=== PATIENT | female | born 1985 | race American Indian/Alaskan Native ===

== ENCOUNTER 2016-06-10 12:53 | Emergency (ER) | payer MEDICAID ==
[2016-06-10 13:28] LABS: Basophils % (Auto) 0.6 % (0.0-1.8); Eosinophils % (Auto) 0.1 % (0.0-4.3); Hematocrit 36.7 % (30.3-42.9); Hemoglobin 11.5 gm/dl (10.1-14.3); Mean Corpuscular HGB Conc 31 % (30-34); Mean Corpuscular Volume 71 fl (79-97); Platelet Count 300 K/mm3 (140-440); Red Blood Count 5.14 M/mm3 (3.65-5.03); Red Cell Distribution Width 17.4 % (13.2-15.2); White Blood Count 10.2 K/mm3 (4.5-11.0)
[2016-06-10 13:30] LABS: Mean Corpuscular Hemoglobin 22 pg (28-32)
[2016-06-10 13:51] LABS: Alanine Aminotransferase 9 units/L (7-56); Albumin 3.6 g/dL (3.9-5); Albumin/Globulin Ratio 0.7 %; Alkaline Phosphatase 82 units/L (35-129); Anion Gap 22 mmol/L; Bilirubin,Total 0.3 mg/dL (0.1-1.2); Blood Urea Nitrogen 12 mg/dL (7-17); Calcium 8.7 mg/dL (8.4-10.2); Carbon Dioxide 20 mmol/L (22-30); Chloride 93.3 mmol/L (98-107); Glucose 88 mg/dL (65-100); Lipase 38 units/L (13-60); Sodium 131 mmol/L (137-145); Total Protein 8.8 g/dL (6.3-8.2)
[2016-06-10] MEDS ORDERED: NACL 0.9% 1000 ML 1,000 ML IV ONE (18:03)
[2016-06-10] MEDS ORDERED: TORADOL IV ONE (18:03)
[2016-06-10] MEDS ORDERED: ZOFRAN IV ONE (18:03)
--- NOTE | 2016-06-10 18:07 | Emergency Department Report ---
ED Abdominal Pain HPI - General Chief Complaint: Abdominal Pain Stated Complaint: ABD PAIN Time Seen by Provider: 06/10/16 18:02 Source: patient Mode of arrival: Ambulatory Limitations: No Limitations - History of Present Illness Initial Comments: Patient is a 30-year-old female with a history of neurofibromatosis. Patient presents with a week history of URI symptoms consisting of cough, nausea, vomiting, and mild diffuse abdominal pain. She reports she has been taking over -the-counter cold medicine with minor relief. Last dose was 2 nights ago. He is reporting a reduced appetite and is having bowel movements last bowel movement was 3 days ago, which is normal for the patient. Otherwise no fevers, chills, headache, shortness of breath, chest pain, trauma, sick contacts, or travel. MD Complaint: abdominal pain -: week(s) (1) Location: diffuse - Related Data Previous Rx's Medication Instructions Recorded Last Taken Type Docusate Sodium [Colace CAP] 100 mg PO BID PRN #20 capsule 11/01/15 Unknown Rx Ibuprofen [Motrin 600 MG tab] 600 mg PO Q8H PRN #30 tablet 11/23/15 Unknown Rx Cefdinir 300 mg PO BID #20 capsule 06/10/16 Unknown Rx Allergies Allergy/AdvReac Type Severity Reaction Status Date / Time No Known Allergies Allergy Verified 11/22/15 18:57 ED Review of Systems ROS: Stated complaint: ABD PAIN Other details as noted in HPI ED Past Medical Hx - Past Medical History Additional medical history: NEUROFIBROMATOSIS - Surgical History Additional Surgical History: TUMORS REMOVED FROM BACK AND LEFT FOOT - Social History Smoking Status: Current Every Day Smoker Substance Use Type: None - Medications Home Medications: Home Medications Medication Instructions Recorded Confirmed Last Taken Type Docusate Sodium [Colace CAP] 100 mg PO BID PRN #20 capsule 11/01/15 Unknown Rx Ibuprofen [Motrin 600 MG tab] 600 mg PO Q8H PRN #30 tablet 11/23/15 Unknown Rx Cefdinir 300 mg PO BID #20 capsule 06/10/16 Unknown Rx ED Physical Exam - General Limitations: No Limitations General appearance: alert, in no apparent distress - Head Head exam: Present: atraumatic, normocephalic - Eye Eye exam: Present: normal appearance - ENT ENT exam: Present: mucous membranes moist - Neck Neck exam: Present: normal inspection - Respiratory Respiratory exam: Present: normal lung sounds bilaterally. Absent: respiratory distress - Cardiovascular Cardiovascular Exam: Present: regular rate, normal rhythm. Absent: systolic murmur, diastolic murmur, rubs, gallop - GI/Abdominal GI/Abdominal exam: Present: soft, normal bowel sounds. Absent: distended, tenderness, guarding - Extremities Exam Extremities exam: Present: normal inspection - Back Exam Back exam: Present: normal inspection - Neurological Exam Neurological exam: Present: alert, oriented X3 - Skin Skin exam: Present: warm, dry, other (neurofibromas) ED Course Vital Signs 06/10/16 06/10/16 06/10/16 13:06 17:43 17:44 Temperature 98.2 F Pulse Rate 85 93 H 84 Respiratory 18 18 15 Rate Blood Pressure 114/65 O2 Sat by Pulse 100 Oximetry 06/10/16 06/10/16 06/10/16 17:46 17:48 17:50 Temperature Pulse Rate 88 88 87 Respiratory 19 13 11 L Rate Blood Pressure 119/54 119/54 O2 Sat by Pulse 100 100 100 Oximetry 06/10/16 06/10/16 06/10/16 17:52 17:54 17:56 Temperature Pulse Rate 80 85 88 Respiratory 11 L 15 13 Rate Blood Pressure 119/54 119/54 119/54 O2 Sat by Pulse 100 100 100 Oximetry 06/10/16 06/10/16 06/10/16 17:58 18:00 18:02 Temperature Pulse Rate 84 91 H 83 Respiratory 14 13 10 L Rate Blood Pressure 119/54 131/96 131/96 O2 Sat by Pulse 100 100 100 Oximetry 06/10/16 06/10/16 06/10/16 18:04 18:11 18:30 Temperature 98.1 F Pulse Rate 79 Respiratory 10 L 10 L 10 L Rate Blood Pressure 131/96 O2 Sat by Pulse 100 100 Oximetry 06/10/16 19:00 Temperature Pulse Rate Respiratory 10 L Rate Blood Pressure O2 Sat by Pulse Oximetry ED Medical Decision Making - Lab Data Result diagrams: 06/10/16 13:13 06/10/16 13:13 Critical care attestation.: If time is entered above; I have spent that time in minutes in the direct care of this critically ill patient, excluding procedure time. ED Disposition Clinical Impression: Abdominal pain, UTI (urinary tract infection) Disposition: DISCHARGED TO HOME OR SELFCARE Is pt being admited?: No Does the pt Need Aspirin: No Condition: Stable Instructions: Urinary Tract Infection in Women (ED), Abdominal Pain (ED) Prescriptions: Cefdinir 300 mg PO BID #20 capsule Referrals: PRIMARY CARE, [Primary Care Provider] - 3-5 Days
[2016-06-10 18:16] LABS: Bacteria,Urine 1+ /HPF (Negative); Bilirubin,Urine NEG (Negative); Blood,Urine SM (Negative); Ketones,Urine 80 mg/dL (Negative); Leukocyte Esterase,Urine TR (Negative); Mucus,Urine 3+ /HPF; Nitrite,Urine NEG (Negative)
[2016-06-10] MEDS ORDERED: MORPHINE IV ONE (19:02)
[2016-06-10 20:58] VITALS: BP 99/56
== END 2016-06-10 21:03 | disposition home or self-care (01) ==
LOC: ED 12:53
DX: N39.0 Urinary tract infection, site not specified (principal); R10.9 Unspecified abdominal pain; F17.200 Nicotine dependence, unspecified, uncomplicated
CPT/HCPCS: 36415; 80053; 81001; 81025; 83690; 85025; 96361; 96374; 96375; 99283; J1885; J2270; J2405; J7030

== ENCOUNTER 2016-10-16 09:03 | Emergency (ER) | payer MEDICAID ==
[2016-10-16 09:38] LABS: Hemoglobin 9.9 gm/dl (10.1-14.3); Mean Corpuscular HGB Conc 32 % (30-34); Platelet Count 436 K/mm3 (140-440); Red Blood Count 4.64 M/mm3 (3.65-5.03); Red Cell Distribution Width 17.6 % (13.2-15.2); White Blood Count 10.6 K/mm3 (4.5-11.0)
[2016-10-16 09:39] LABS: Mean Corpuscular Hemoglobin 21 pg (28-32); Mean Corpuscular Volume 67 fl (79-97)
[2016-10-16 10:00] LABS: Alanine Aminotransferase 11 units/L (7-56); Albumin 3.9 g/dL (3.9-5); Albumin/Globulin Ratio 0.9 %; Alkaline Phosphatase 72 units/L (35-129); Anion Gap 22 mmol/L; Blood Urea Nitrogen 9 mg/dL (7-17); Carbon Dioxide 21 mmol/L (22-30); Chloride 98.5 mmol/L (98-107); Glucose 87 mg/dL (65-100); Lipase 21 units/L (13-60); Potassium 3.9 mmol/L (3.6-5.0); Sodium 138 mmol/L (137-145); Total Protein 8.4 g/dL (6.3-8.2)
[2016-10-16 10:25] LABS: Basophils % (Manual) 0 % (0.0-1.8); Blastocytes % (Manual) 0 %; Eosinophils % (Manual) 0 % (0.0-4.3); Hypochromasia 2+; Microcytosis 2+; Poikilocytosis 1+
[2016-10-16 10:26] LABS: Diff Status Complete
[2016-10-16 11:16] LABS: Bilirubin,Urine NEG (Negative); Blood,Urine MOD (Negative); Ketones,Urine TR mg/dL (Negative); Leukocyte Esterase,Urine LG (Negative); Mucus,Urine 3+ /HPF; Nitrite,Urine POS (Negative); Urobilinogen,Urine < 2.0 mg/dL (<2.0)
[2016-10-16] MEDS ORDERED: ZOFRAN IV ONE (18:55)
[2016-10-16] MEDS ORDERED: NACL 0.9% 1000 ML 1,000 ML IV ONE (18:55)
[2016-10-16] MEDS ORDERED: ROCEPHIN/NS 1 GM/50 ML 1 GM/50 ML BAG IV ONE (18:55)
[2016-10-16] MEDS ORDERED: TORADOL IV ONE (18:55)
[2016-10-16] MEDS ORDERED: TYLENOL PO ONE (18:56)
[2016-10-16] MEDS ORDERED: MORPHINE IV ONE (18:56)
--- NOTE | 2016-10-16 18:57 | Emergency Department Report ---
ED General Adult HPI - General Chief complaint: Abdominal Pain Stated complaint: HEADACHE/STOMACH PAIN/ Time Seen by Provider: 10/16/16 18:37 Source: patient, RN notes reviewed, old records reviewed Mode of arrival: Ambulatory Limitations: No Limitations - History of Present Illness Initial comments: This is a 30-year-old female. I have evaluated her in the past. Past medical history includes neurofibromatosis, CT scan confirmed pyelonephritis, which was pansensitive. The patient presents to the ER today with complaint of flank pain , and epigastric abdominal pain. She also describes feelings of hot and cold, has nausea with no emesis, and suprapubic pain. To me she denies headache. The symptoms have been going on for the past 4 days. She reports there is similar to prior episodes of pyelonephritis. No recent antibiotic use. -: Gradual Location: back, abdomen Consistency: intermittent Improves with: rest Worsens with: movement Associated Symptoms: diaphoresis, fever/chills, loss of appetite, malaise, nausea/vomiting, weakness. denies: confusion, chest pain - Related Data Previous Rx's Medication Instructions Recorded Last Taken Type Docusate Sodium [Colace CAP] 100 mg PO BID PRN #20 capsule 11/01/15 Unknown Rx Ibuprofen [Motrin 600 MG tab] 600 mg PO Q8H PRN #30 tablet 11/23/15 Unknown Rx Cefdinir 300 mg PO BID #20 capsule 06/10/16 Unknown Rx Ibuprofen [Motrin] 600 mg PO Q8H PRN #30 tablet 10/16/16 Unknown Rx Levofloxacin [Levaquin] 750 mg PO QDAY #10 tablet 10/16/16 Unknown Rx Metoclopramide [Reglan] 10 mg PO QID PRN #30 tablet 10/16/16 Unknown Rx oxyCODONE [Roxicodone] 5 mg PO Q6HR PRN #15 tablet 10/16/16 Unknown Rx Allergies Allergy/AdvReac Type Severity Reaction Status Date / Time No Known Allergies Allergy Verified 11/22/15 18:57 ED Review of Systems ROS: Stated complaint: HEADACHE/STOMACH PAIN/ Other details as noted in HPI Constitutional: malaise Eyes: denies: vision change ENT: denies: epistaxis Respiratory: denies: cough Cardiovascular: denies: chest pain Gastrointestinal: abdominal pain Genitourinary: denies: abnormal menses Musculoskeletal: back pain Skin: denies: lesions Neurological: denies: weakness Psychiatric: denies: anxiety ED Past Medical Hx - Past Medical History Previous Medical History?: Yes Additional medical history: NEUROFIBROMATOSIS - Surgical History Past Surgical History?: Yes Additional Surgical History: TUMORS REMOVED FROM BACK AND LEFT FOOT - Social History Smoking Status: Current Every Day Smoker Substance Use Type: None - Medications Home Medications: Home Medications Medication Instructions Recorded Confirmed Last Taken Type Docusate Sodium [Colace CAP] 100 mg PO BID PRN #20 capsule 11/01/15 Unknown Rx Ibuprofen [Motrin 600 MG tab] 600 mg PO Q8H PRN #30 tablet 11/23/15 Unknown Rx Cefdinir 300 mg PO BID #20 capsule 06/10/16 Unknown Rx Ibuprofen [Motrin] 600 mg PO Q8H PRN #30 tablet 10/16/16 Unknown Rx Levofloxacin [Levaquin] 750 mg PO QDAY #10 tablet 10/16/16 Unknown Rx Metoclopramide [Reglan] 10 mg PO QID PRN #30 tablet 10/16/16 Unknown Rx oxyCODONE [Roxicodone] 5 mg PO Q6HR PRN #15 tablet 10/16/16 Unknown Rx ED Physical Exam - General Limitations: No Limitations General appearance: alert, in no apparent distress - Head Head exam: Present: atraumatic, normocephalic - Eye Eye exam: Present: normal appearance, PERRL, EOMI, other (visual acuity intact to finger counting, color perception, reading at a close distance). Absent: nystagmus - ENT ENT exam: Present: normal exam, normal orophraynx, mucous membranes moist, normal external ear exam - Neck Neck exam: Present: normal inspection, full ROM. Absent: tenderness, meningismus - Respiratory Respiratory exam: Present: normal lung sounds bilaterally. Absent: respiratory distress, wheezes, rales, rhonchi, stridor, chest wall tenderness, accessory muscle use, decreased breath sounds, prolonged expiratory - Cardiovascular Cardiovascular Exam: Present: regular rate, normal rhythm, normal heart sounds. Absent: bradycardia, tachycardia, irregular rhythm, systolic murmur, diastolic murmur, rubs, gallop - GI/Abdominal GI/Abdominal exam: Present: soft, tenderness, normal bowel sounds, other (there is epigastric tenderness. There is suprapubic tenderness. There is no right lower quadrant tenderness.). Absent: distended, guarding, rebound, rigid, pulsatile mass - External exam: Present: normal external exam Speculum exam: Present: normal speculum exam Bi-manual exam: Present: normal bi-manual exam, other (escorted by a motor express clerk Moni Oden). Absent: cervical motion tendernes, adnexal tenderness, adnexal mass, uterine enlargement, uterine tenderness - Extremities Exam Extremities exam: Present: normal inspection, full ROM, normal capillary refill. Absent: pedal edema, joint swelling, calf tenderness - Back Exam Back exam: Present: normal inspection, full ROM, CVA tenderness (R), CVA tenderness (L). Absent: tenderness, paraspinal tenderness, vertebral tenderness - Neurological Exam Neurological exam: Present: alert, oriented X3, normal gait, other (Extraocular movements intact. Tongue midline. No facial droop. Facial sensation intact to light touch in the V1, V2, V3 distribution bilaterally. 5 and 5 strength in 4 extremities.. Sensation is intact to light touch in 4 extremities.). Absent : motor sensory deficit - Psychiatric Psychiatric exam: Present: normal affect, normal mood - Skin Skin exam: Present: warm, dry, intact, normal color. Absent: rash ED Course Vital Signs 10/16/16 10/16/16 09:12 19:04 Temperature 100 F H 99.8 F H Pulse Rate 88 82 Respiratory 15 18 Rate Blood Pressure 97/60 Blood Pressure 106/61 [Left] O2 Sat by Pulse 100 100 Oximetry - Reevaluation(s) Reevaluation #1: 10/17/16 02:16 prior to discharge, the patient appeared quite comfortable, was eating and drinking without difficulty, and endorse that her symptoms had markedly improved and resolved. ED Medical Decision Making - Lab Data Result diagrams: 10/16/16 09:21 10/16/16 09:21 Vital Signs 10/16/16 10/16/16 09:12 19:04 Temperature 100 F H 99.8 F H Pulse Rate 88 82 Respiratory 15 18 Rate Blood Pressure 97/60 Blood Pressure 106/61 [Left] O2 Sat by Pulse 100 100 Oximetry Lab Results 10/16/16 10/16/16 10/16/16 Range/Units 09:21 09:21 10:41 WBC 10.6 (4.5-11.0) K/mm3 RBC 4.64 (3.65-5.03) M/mm3 Hgb 9.9 L (10.1-14.3) gm/dl Hct 31.0 (30.3-42.9) % MCV 67 L (79-97) fl MCH 21 L (28-32) pg MCHC 32 (30-34) % RDW 17.6 H (13.2-15.2) % Plt Count 436 (140-440) K/mm3 [place]ahan % (Auto) Special Education Coordinator Add Manual Diff Complete Total Counted 100 Seg Neuts % (Manual) 70.0 (40.0-70.0) % Band Neutrophils % 3.0 % Lymphocytes % (Manual) 11.0 L (13.4-35.0) % Reactive Lymphs % (Man) 0 % Monocytes % (Manual) 16.0 H (0.0-7.3) % Eosinophils % (Manual) 0 (0.0-4.3) % Basophils % (Manual) 0 (0.0-1.8) % Metamyelocytes % 0 % Myelocytes % 0 % Promyelocytes % 0 % Blast Cells % 0 % Nucleated RBC % Not Reportable Seg Neutrophils # Man 7.4 (1.8-7.7) K/mm3 Band Neutrophils # 0.3 K/mm3 Lymphocytes # (Manual) 1.2 (1.2-5.4) K/mm3 Abs React Lymphs (Man) 0.0 K/mm3 Monocytes # (Manual) 1.7 H (0.0-0.8) K/mm3 Eosinophils # (Manual) 0.0 (0.0-0.4) K/mm3 Basophils # (Manual) 0.0 (0.0-0.1) K/mm3 Metamyelocytes # 0.0 K/mm3 Myelocytes # 0.0 K/mm3 Promyelocytes # 0.0 K/mm3 Blast Cells # 0.0 K/mm3 WBC Morphology Not Reportable Hypersegmented Neuts Not Reportable Hyposegmented Neuts Not Reportable Hypogranular Neuts Not Reportable Smudge Cells Not Reportable Toxic Granulation Not Reportable Toxic Vacuolation Not Reportable Dohle Bodies Not Reportable Pelger-Huet Anomaly Not Reportable Kenn Rods Not Reportable Platelet Estimate Not Reportable Clumped Platelets Not Reportable Plt Clumps, EDTA Not Reportable Large Platelets Not Reportable Giant Platelets Not Reportable Platelet Satelliting Not Reportable Plt Morphology Comment Not Reportable RBC Morphology Not Reportable Dimorphic RBCs Not Reportable Polychromasia Not Reportable Hypochromasia 2+ Poikilocytosis 1+ Anisocytosis Not Reportable Microcytosis 2+ Macrocytosis Not Reportable Spherocytes Not Reportable Pappenheimer Bodies Not Reportable Sickle Cells Not Reportable Target Cells Not Reportable Tear Drop Cells Not Reportable Ovalocytes Not Reportable Helmet Cells Not Reportable S[place] Bodies Not Reportable Manly Rings Not Reportable [place] Cells Not Reportable Bite Cells Not Reportable Crenated Cell Not Reportable Elliptocytes Not Reportable Acanthocytes (Spur) Not Reportable Rouleaux Not Reportable Hemoglobin C Crystals Not Reportable Schistocytes Not Reportable Malaria parasites Not Reportable Evan Bodies Not Reportable Hem Pathologist Commnt No Sodium 138 (137-145) mmol/L Potassium 3.9 (3.6-5.0) mmol/L Chloride 98.5 (98-107) mmol/L Carbon Dioxide 21 L (22-30) mmol/L Anion Gap 22 mmol/L BUN 9 (7-17) mg/dL Creatinine 0.6 L (0.7-1.2) mg/dL Estimated GFR > 60 ml/min BUN/Creatinine Ratio 15.00 % Glucose 87 (65-100) mg/dL Calcium 9.0 (8.4-10.2) mg/dL Total Bilirubin 0.60 (0.1-1.2) mg/dL AST 13 (5-40) units/L ALT 11 (7-56) units/L Alkaline Phosphatase 72 (35-129) units/L Total Protein 8.4 H (6.3-8.2) g/dL Albumin 3.9 (3.9-5) g/dL Albumin/Globulin Ratio 0.9 % Lipase 21 (13-60) units/L Urine Color Yellow (Yellow) Urine Turbidity Slightly-cloudy (Clear) Urine pH 5.0 (5.0-7.0) Ur Specific [place] 1.016 (1.003-1.030) Urine Protein 30 mg/dl (Negative) mg/dL Urine Glucose (UA) Neg (Negative) mg/dL Urine Ketones Tr (Negative) mg/dL Urine Blood Mod (Negative) Urine Nitrite Pos (Negative) Urine Bilirubin Neg (Negative) Urine Urobilinogen < 2.0 (<2.0) mg/dL Ur Leukocyte Esterase Lg (Negative) Urine WBC (Auto) 53.0 H (0.0-6.0) /HPF Urine RBC (Auto) 8.0 (0.0-6.0) /HPF U Epithel Cells (Auto) 3.0 (0-13.0) /HPF Ur Transition Epith Cell 1 /HPF Urine Mucus 3+ /HPF - Medical Decision Making Differential diagnosis: Cystitis, pyelonephritis Assessment and plan: 30-year-old female with an identical presentation to when I evaluated her November 2015. She endorses urinary frequency and obstructive urinary symptoms. Urinalysis today demonstrates positive nitrites, large leuks , 53 WBCs, with suprapubic tenderness and bilateral CVA tenderness. There is no gynecologic tenderness, there is no right lower quadrant tenderness. Extensive discussion had with patient. I don't believe she requires CT scanning at this time, as I think her clinical presentation is consistent with pyelonephritis. This was discussed with the patient, who agreed, and through shared decision making, declined a CT scan (concerned with radiation induced malignancy) which I think is reasonable. The patient will be started empirically on appropriate therapy for pyelonephritis, and she is going to follow up in 2-3 days with either myself or her primary care doctor for repeat evaluation. She is afebrile at this time with reassuring vital signs, and is reliable for discharge with his plan of care. A urine culture from November 2015 demonstrated butcher sensitivity. She denies headache to me, she has an appropriate neurologic examination, with a GCS of 15, NIH score of 0, with no neck pain or neck stiffness or nuchal rigidity. Critical care attestation.: If time is entered above; I have spent that time in minutes in the direct care of this critically ill patient, excluding procedure time. ED Disposition Clinical Impression: Pyelonephritis Disposition: - TO HOME OR SELFCARE Is pt being admited?: No Does the pt Need Aspirin: No Condition: Stable Instructions: Acute Pyelonephritis (ED) Additional Instructions: Cultures were sent today, results will be available in the next 3-5 days. Please have a primary care doctor contact the medical records department to obtain culture results. Avoid alcohol consumption when taking the pain medication, nausea medication, antibiotics. Follow up in the next 48-72 hours for repeat evaluation. Follow up with either a primary care doctor, return to the ER for repeat evaluation by myself or another ER provider. Return to the ER right away with new pain, worsened pain, migration of pain, fevers, chills, intractable nausea or vomiting, inability to tolerate liquid feeds, confusion, change in mental status. Prescriptions: Ibuprofen [Motrin] 600 mg PO Q8H PRN #30 tablet PRN Reason: Pain Levofloxacin [Levaquin] 750 mg PO QDAY #10 tablet Metoclopramide [Reglan] 10 mg PO QID PRN #30 tablet PRN Reason: Nausea oxyCODONE [Roxicodone] 5 mg PO Q6HR PRN #15 tablet PRN Reason: Pain Referrals: PRIMARY CAREMD [Primary Care Provider] - 3-5 Days BECKY ALLEN MD [Staff Physician] - 3-5 Days
[2016-10-16 19:13] VITALS: BP 106/61
== END 2016-10-16 20:44 | disposition home or self-care (01) ==
LOC: ED 09:03
DX: N12 Tubulo-interstitial nephritis, not specified as acute or chronic (principal); F17.200 Nicotine dependence, unspecified, uncomplicated
CPT/HCPCS: 36415; 80053; 81001; 83690; 85007; 85025; 87076; 87086; 87186; 87210; 87591; 96365; 96375; 99284; J0696; J1885; J2270; J2405; J7030

== ENCOUNTER 2016-10-18 17:20 | Emergency (ER) | payer MEDICAID ==
[2016-10-18 17:31] VITALS: BP 113/70
--- NOTE | 2016-10-18 17:56 | Emergency Department Report ---
ED Recheck HPI - General Chief Complaint: Recheck/Abnormal Lab/Rx Stated Complaint: CALLED BACK/ABD PAIN Time Seen by Provider: 10/18/16 17:50 Source: patient, RN notes reviewed, old records reviewed Mode of arrival: Ambulatory Limitations: No Limitations - History of Present Illness Initial Comments: This is a 30-year-old female. I recently evaluated her and presumptively treat her for pyelonephritis. I asked her to come back in a few days for recheck. She reports that all of her symptoms are improving. She is able to tolerate liquid feeds. She currently has no headache, neck pain, chest pain, abdominal pain or shortness of breath, and she endorses compliance with her prescribed therapy. Urine culture is pending, however thus far it is demonstrating gram- negative rods. Sensitivities pending. MD Complaint: other Returns Today for: other Symptoms Since Prior Visit: no new symptoms, improved Context: planned re-check Associated Symptoms: none Treatments Prior to Arrival: Given Antibiotics on, Given Pain Meds on, other - Related Data Previous Rx's Medication Instructions Recorded Last Taken Type Docusate Sodium [Colace CAP] 100 mg PO BID PRN #20 capsule 11/01/15 Unknown Rx Ibuprofen [Motrin 600 MG tab] 600 mg PO Q8H PRN #30 tablet 11/23/15 Unknown Rx Cefdinir 300 mg PO BID #20 capsule 06/10/16 Unknown Rx Ibuprofen [Motrin] 600 mg PO Q8H PRN #30 tablet 10/16/16 Unknown Rx Levofloxacin [Levaquin] 750 mg PO QDAY #10 tablet 10/16/16 Unknown Rx Metoclopramide [Reglan] 10 mg PO QID PRN #30 tablet 10/16/16 Unknown Rx oxyCODONE [Roxicodone] 5 mg PO Q6HR PRN #15 tablet 10/16/16 Unknown Rx Allergies Allergy/AdvReac Type Severity Reaction Status Date / Time No Known Allergies Allergy Verified 10/18/16 17:28 ED Review of Systems ROS: Stated complaint: CALLED BACK/ABD PAIN Other details as noted in HPI Constitutional: denies: fever, malaise Eyes: denies: vision change ENT: denies: epistaxis Respiratory: denies: cough Cardiovascular: denies: palpitations Gastrointestinal: denies: abdominal pain Genitourinary: denies: urgency, dysuria Musculoskeletal: denies: back pain Skin: denies: rash, lesions Neurological: denies: headache Psychiatric: denies: anxiety ED Past Medical Hx - Past Medical History Additional medical history: NEUROFIBROMATOSIS - Surgical History Additional Surgical History: TUMORS REMOVED FROM BACK AND LEFT FOOT - Social History Smoking Status: Current Every Day Smoker Substance Use Type: Prescribed - Medications Home Medications: Home Medications Medication Instructions Recorded Confirmed Last Taken Type Docusate Sodium [Colace CAP] 100 mg PO BID PRN #20 capsule 11/01/15 Unknown Rx Ibuprofen [Motrin 600 MG tab] 600 mg PO Q8H PRN #30 tablet 11/23/15 Unknown Rx Cefdinir 300 mg PO BID #20 capsule 06/10/16 Unknown Rx Ibuprofen [Motrin] 600 mg PO Q8H PRN #30 tablet 10/16/16 Unknown Rx Levofloxacin [Levaquin] 750 mg PO QDAY #10 tablet 10/16/16 Unknown Rx Metoclopramide [Reglan] 10 mg PO QID PRN #30 tablet 10/16/16 Unknown Rx oxyCODONE [Roxicodone] 5 mg PO Q6HR PRN #15 tablet 10/16/16 Unknown Rx ED Physical Exam - General Limitations: No Limitations General appearance: alert, in no apparent distress - Head Head exam: Present: atraumatic, normocephalic - Eye Eye exam: Present: normal appearance, EOMI. Absent: nystagmus - ENT ENT exam: Present: normal exam, normal orophraynx, mucous membranes moist, normal external ear exam - Neck Neck exam: Present: normal inspection, full ROM - Respiratory Respiratory exam: Present: normal lung sounds bilaterally. Absent: respiratory distress - Cardiovascular Cardiovascular Exam: Present: regular rate, normal rhythm, normal heart sounds. Absent: bradycardia, tachycardia, irregular rhythm, systolic murmur, diastolic murmur, rubs, gallop - GI/Abdominal GI/Abdominal exam: Present: soft, normal bowel sounds. Absent: distended, tenderness, guarding, rebound, rigid, pulsatile mass - Extremities Exam Extremities exam: Present: normal inspection, normal capillary refill. Absent: calf tenderness - Back Exam Back exam: Present: normal inspection, full ROM. Absent: tenderness, CVA tenderness (R), CVA tenderness (L) - Neurological Exam Neurological exam: Present: alert, oriented X3, normal gait, other (Extraocular movements intact. Tongue midline. No facial droop. Facial sensation intact to light touch in the V1, V2, V3 distribution bilaterally. 5 and 5 strength in 4 extremities.. Sensation is intact to light touch in 4 extremities.). Absent : motor sensory deficit - Psychiatric Psychiatric exam: Present: normal affect, normal mood - Skin Skin exam: Present: warm, dry, intact, normal color. Absent: rash ED Course Vital Signs 10/18/16 17:28 Temperature 98.5 F Pulse Rate 84 Respiratory 15 Rate Blood Pressure 113/70 O2 Sat by Pulse 100 Oximetry ED Recheck MDM - Core Measures Measure Exclusions: not indicated - Medical Decision Making Differential diagnosis: Pyelonephritis, follow-up, clinically improving Assessment and plan: 30-year-old female who is dramatically improving with the presumed diagnosis of pyelonephritis. Cultures are pending, sensitivities not resulted, she appears to be improving, she is suitable to follow up with outpatient primary care. Return precautions are reviewed. Critical care attestation.: If time is entered above; I have spent that time in minutes in the direct care of this critically ill patient, excluding procedure time. ED Disposition Clinical Impression: Follow up Disposition: DC-01 TO HOME OR SELFCARE Is pt being admited?: No Does the pt Need Aspirin: No Condition: Good Instructions: Acute Pyelonephritis (ED) Additional Instructions: Continue current outpatient antibiotics. Continue outpatient pain medication and nausea medication. Follow up with a primary care doctor within 2 weeks. Return to the ER [place] with fevers, chills, chest pain, shortness of breath, intractable nausea or vomiting, confusion, inability to tolerate liquid feeds. Referrals: ORLIN SHANNON MD [Staff Physician] - 3-5 Days
== END 2016-10-18 18:11 | disposition home or self-care (01) ==
LOC: ED 17:20
DX: Z09 Encounter for follow-up examination after completed treatment for conditions other than malignant neoplasm (principal); F17.200 Nicotine dependence, unspecified, uncomplicated
CPT/HCPCS: 99282

== ENCOUNTER 2016-12-01 15:08 | Emergency (ER) | payer MEDICAID ==
[2016-12-01 16:17] LABS: Anion Gap 17 mmol/L; BUN/Creatinine Ratio 16.66; Blood Urea Nitrogen 10 mg/dL (7-17); Calcium 9.3 mg/dL (8.4-10.2); Carbon Dioxide 27 mmol/L (22-30); Chloride 102.5 mmol/L (98-107); Glucose 72 mg/dL (65-100); Sodium 142 mmol/L (137-145)
[2016-12-01 16:28] LABS: Hematocrit 31.5 % (30.3-42.9); Hemoglobin 9.8 gm/dl (10.1-14.3); Mean Corpuscular HGB Conc 31 % (30-34); Mean Corpuscular Hemoglobin 21 pg (28-32); Mean Corpuscular Volume 68 fl (79-97); Platelet Count 364 K/mm3 (140-440); Red Blood Count 4.63 M/mm3 (3.65-5.03); Red Cell Distribution Width 18.8 % (13.2-15.2); White Blood Count 8.8 K/mm3 (4.5-11.0)
[2016-12-01] MEDS ORDERED: XYLOCAINE 2% INFILTRATI ONE (17:21)
[2016-12-01] MEDS ORDERED: NORCO 5/325 PO ONE (17:24)
--- NOTE | 2016-12-01 17:24 | Emergency Department Report ---
HPI - General Chief Complaint: Skin/Abscess/Foreign Body Time Seen by Provider: 12/01/16 17:05 - HPI HPI: This is a 31 year-old female presents to the emergency department, dropped off by a friend, with complaint of an area of swelling to the left upper face lateral to the eye has been going on for the past 4 days. She says that it is tender but there has been no bleeding, weeping or drainage. She has not taken anything for her symptoms prior to presentation. She denies any fever, vision change but says that the swelling in this area as causing a slight headache. She has a past medical history of neurofibromatosis. She does not currently have a primary care physician. No recent travel or sick contacts at home. ED Past Medical Hx - Past Medical History Previous Medical History?: Yes Additional medical history: NEUROFIBROMATOSIS - Surgical History Past Surgical History?: Yes Additional Surgical History: TUMORS REMOVED FROM BACK AND LEFT FOOT - Social History Smoking Status: Current Every Day Smoker Substance Use Type: Alcohol - Medications Home Medications: Home Medications Medication Instructions Recorded Confirmed Last Taken Type Docusate Sodium [Colace CAP] 100 mg PO BID PRN #20 capsule 11/01/15 Unknown Rx Ibuprofen [Motrin 600 MG tab] 600 mg PO Q8H PRN #30 tablet 11/23/15 Unknown Rx Cefdinir 300 mg PO BID #20 capsule 06/10/16 Unknown Rx Ibuprofen [Motrin] 600 mg PO Q8H PRN #30 tablet 10/16/16 Unknown Rx Levofloxacin [Levaquin] 750 mg PO QDAY #10 tablet 10/16/16 Unknown Rx Metoclopramide [Reglan] 10 mg PO QID PRN #30 tablet 10/16/16 Unknown Rx oxyCODONE [Roxicodone] 5 mg PO Q6HR PRN #15 tablet 10/16/16 Unknown Rx HYDROcodone/APAP 5-325 [Cascade 1 each PO Q6HR PRN #8 tablet 12/01/16 Unknown Rx 5/325] Sulfamethoxazole/Trimethoprim 1 each PO BID #14 tablet 12/01/16 Unknown Rx [Bactrim DS TAB] ED Review of Systems ROS: Stated complaint: FACIAL SWELLING Other details as noted in HPI Comment: All other systems reviewed and negative Constitutional: denies: chills, fever Eyes: denies: eye pain, eye discharge, vision change ENT: denies: ear pain, throat pain Respiratory: denies: cough, shortness of breath, wheezing Cardiovascular: denies: chest pain, palpitations Gastrointestinal: denies: abdominal pain, nausea, diarrhea Genitourinary: denies: urgency, dysuria, discharge Musculoskeletal: denies: back pain, joint swelling, arthralgia Skin: lesions. denies: rash Neurological: headache. denies: weakness Physical Exam - Physical Exam Vital Signs: Vital Signs 12/01/16 15:33 Temperature 98.9 F Pulse Rate 68 Respiratory 18 Rate Blood Pressure 101/56 O2 Sat by Pulse 100 Oximetry Physical Exam: GENERAL: The patient is well-developed well-nourished. HENT: Normocephalic. Atraumatic. Patient has moist mucous membranes. EYES: Extraocular motions are intact. Pupils equal reactive to light bilaterally. NECK: Supple. Trachea is midline. CHEST/LUNGS: Clear to auscultation. There is no respiratory distress noted. HEART/CARDIOVASCULAR: Regular. There is no tachycardia. There is no gallop rub or murmur. ABDOMEN: Abdomen is soft, nontender. Patient has normal bowel sounds. There is no abdominal distention. SKIN: There is a lesion to the left upper lateral face that is circular, raised , is about 3 cm in diameter. The border is more indurated while the central area is slightly fluctuant. There is no erythema or significant warmth. NEURO: The patient is awake, alert, and oriented. The patient is cooperative. The patient has no focal neurologic deficits. The patient has normal speech. MUSCULOSKELETAL: There is no tenderness or deformity. There is no limitation range of motion. There is no evidence of acute injury. ED Course Vital Signs 12/01/16 15:33 Temperature 98.9 F Pulse Rate 68 Respiratory 18 Rate Blood Pressure 101/56 O2 Sat by Pulse 100 Oximetry - I & D Left Face Type of Procedure: Simple Site: left lateral face Blade Size: 11 I & D Procedure: betadine prep, sterile drapes applied, sterile dressing applied Progress: About 2 mL of 2% lidocaine without epinephrine were injected into the suspected abscess. A 1 cm incision was made with an 11 blade scalpel. There was a very small amount of purulent discharge and some mild bleeding. Pressure was held and sterile gauze was applied. No obvious complications. The patient tolerated the procedure well. ED Medical Decision Making - Lab Data Result diagrams: 12/01/16 15:48 12/01/16 15:48 - Medical Decision Making Patient presents with 4 day history of some swelling to the left upper lateral face. With history of neurofibromatosis, it is possible that it is a fibroma. However he developed within 4 days, has a central area of fluctuance and appears consistent with an abscess. I spoke to the patient in detail about the procedure to do a incision and drainage and she understands that doing so on the face could leave a small scar, but the patient understands and asked for the procedure to be done. Incision and drainage was done with only a very small amount of purulent return as it mostly appears indurated. However there is now on opening into the wound/lesion and the patient will use warm compresses. She will also be placed on antibiotics. Vital signs stable including being afebrile. She has been encouraged to follow up with a primary care physician and return to the ER with any worsening of her symptoms or any acute distress. We discussed worsening signs or symptoms of infection and reasons to return to the emergency department. - Differential Diagnosis abscess, neurofibroma, cyst Critical Care Time: No Critical care attestation.: If time is entered above; I have spent that time in minutes in the direct care of this critically ill patient, excluding procedure time. ED Disposition Clinical Impression: Swelling of left side of face, Abscess Disposition: - TO HOME OR SELFCARE Is pt being admited?: No Condition: Stable Instructions: Abscess Incision and Drainage (ED), Abscess (ED) Additional Instructions: Please follow up with a primary care doctor in the next 2 days for a wound check. Use a warm, but not hot, compress or washcloth to place against the swollen area and/or abscess and try to express infection. Return to the emergency department immediately with any worsening of the swelling, surrounding redness, development of fever or any acute distress. Take the antibiotics as prescribed. You have been prescribed a medication that is sedating and therefore should not be taken prior to driving, working, and responsible for children and in no way should be mixed with alcohol of any quantity. Prescriptions: HYDROcodone/APAP 5-325 [Cascade 5/325] 1 each PO Q6HR PRN #8 tablet PRN Reason: Pain Sulfamethoxazole/Trimethoprim [Bactrim DS TAB] 1 each PO BID #14 tablet Referrals: PRIMARY CARE, [Primary Care Provider] - 3-5 Days SLADE BUCK JR, MD [Staff Physician] - 3-5 Days ALLIE PAUL MD [Staff Physician] - 3-5 Days [facility] [Outside] - 3-5 Days [facility] [Outside] - 3-5 Days [facility] [Outside] - 3-5 Days Time of Disposition: 18:15
[2016-12-01] MEDS ORDERED: BACTRIM DS PO ONE (17:43)
[2016-12-01 17:56] VITALS: BP 107/60
== END 2016-12-01 19:40 | disposition home or self-care (01) ==
LOC: ED 15:08
DX: L02.01 Cutaneous abscess of face (principal); F17.200 Nicotine dependence, unspecified, uncomplicated
CPT/HCPCS: 36415; 80048; 85025; 99283

== ENCOUNTER 2017-03-16 11:18 | Emergency (ER) | payer MEDICAID ==
--- NOTE | 2017-03-16 21:13 | Emergency Department Report ---
Abscess Boil HPI - HPI Chief Complaint: Skin/Abscess/Foreign Body Stated Complaint: FACIAL SWELLING Time Seen by Provider: 03/16/17 20:29 Duration: 2 Days Location: Other (left facial pain and swelling 2 days) Severity: Severe (pain is 10/10 and sore/aching. Worse to touch and eating) History: Yes Pain (lt facial area and chin and swelling), No Fever, No Purulent Drainage, No Numbness, No Foreign Body, No Previous History, No Insect Bite HPI: Patient here complaining of left sided facial pain and pain at her chin area since 03/14/2017. She had similar incident in the past. Tetanus vaccine is up-to-date. She denies any drooling or trouble swallowing. Denies any sore throat. Denies any toothache. Patient says she had a pimple on her left face and it got bigger now she is having swelling around the area. Pain is 10 out of 10 sore and aching. She says she took [id number] pain medication but it's not working. Patient does have a primary care physician and she does have access to a inorganic chemist but she says she did not go to her doctor. She said last time it happened a told her that she has an infection and treated her with antibiotic. Home Medications: Previous Rx's Medication Instructions Recorded Last Taken Type Docusate Sodium [Colace CAP] 100 mg PO BID PRN #20 capsule 11/01/15 Unknown Rx Ibuprofen [Motrin 600 MG tab] 600 mg PO Q8H PRN #30 tablet 11/23/15 Unknown Rx Cefdinir 300 mg PO BID #20 capsule 06/10/16 Unknown Rx Levofloxacin [Levaquin] 750 mg PO QDAY #10 tablet 10/16/16 Unknown Rx Metoclopramide [Reglan] 10 mg PO QID PRN #30 tablet 10/16/16 Unknown Rx oxyCODONE [Roxicodone] 5 mg PO Q6HR PRN #15 tablet 10/16/16 Unknown Rx HYDROcodone/APAP 5-325 [Dent 1 each PO Q6HR PRN #8 tablet 12/01/16 Unknown Rx 5/325] Sulfamethoxazole/Trimethoprim 1 each PO BID #14 tablet 12/01/16 Unknown Rx [Bactrim DS TAB] Acetaminophen/Codeine [Tylenol 1 tab PO Q6H PRN 3 Days #12 tab 03/16/17 Unknown Rx /Codeine # 3 tab] Clindamycin [Clindamycin CAP] 300 mg PO Q8H 10 Days #30 cap 03/16/17 Unknown Rx Ibuprofen [Motrin 600 MG tab] 600 mg PO Q8H PRN 5 Days #15 tablet 03/16/17 Unknown Rx Allergies/Adverse Reactions: Allergies Allergy/AdvReac Type Severity Reaction Status Date / Time No Known Allergies Allergy Verified 10/18/16 17:28 ED Review of Systems ROS: Stated complaint: FACIAL SWELLING Other details as noted in HPI Comment: All other systems reviewed and negative Constitutional: no symptoms reported Eyes: denies: eye pain, eye discharge ENT: other (Lt facial pain and swelling. Swelling to chin). denies: ear pain, throat pain, dental pain, epistaxis, congestion Respiratory: no symptoms reported Cardiovascular: denies: chest pain, palpitations, dyspnea on exertion, edema, syncope Gastrointestinal: denies: abdominal pain, nausea, vomiting, diarrhea, constipation Musculoskeletal: denies: back pain, joint swelling, arthralgia, myalgia Skin: denies: rash, lesions Neurological: denies: headache, weakness, numbness, paresthesias, confusion, abnormal gait, vertigo ED Past Medical Hx - Past Medical History Previous Medical History?: Yes Additional medical history: NEUROFIBROMATOSIS - Surgical History Past Surgical History?: Yes Additional Surgical History: TUMORS REMOVED FROM BACK AND LEFT FOOT - Family History Family history: hypertension - Social History Smoking Status: Current Every Day Smoker Substance Use Type: None - Medications Home Medications: Home Medications Medication Instructions Recorded Confirmed Last Taken Type Docusate Sodium [Colace CAP] 100 mg PO BID PRN #20 capsule 11/01/15 Unknown Rx Ibuprofen [Motrin 600 MG tab] 600 mg PO Q8H PRN #30 tablet 11/23/15 Unknown Rx Cefdinir 300 mg PO BID #20 capsule 06/10/16 Unknown Rx Levofloxacin [Levaquin] 750 mg PO QDAY #10 tablet 10/16/16 Unknown Rx Metoclopramide [Reglan] 10 mg PO QID PRN #30 tablet 10/16/16 Unknown Rx oxyCODONE [Roxicodone] 5 mg PO Q6HR PRN #15 tablet 10/16/16 Unknown Rx HYDROcodone/APAP 5-325 [Dent 1 each PO Q6HR PRN #8 tablet 12/01/16 Unknown Rx 5/325] Sulfamethoxazole/Trimethoprim 1 each PO BID #14 tablet 12/01/16 Unknown Rx [Bactrim DS TAB] Acetaminophen/Codeine [Tylenol 1 tab PO Q6H PRN 3 Days #12 tab 03/16/17 Unknown Rx /Codeine # 3 tab] Clindamycin [Clindamycin CAP] 300 mg PO Q8H 10 Days #30 cap 03/16/17 Unknown Rx Ibuprofen [Motrin 600 MG tab] 600 mg PO Q8H PRN 5 Days #15 tablet 03/16/17 Unknown Rx ED Abscess Boil Physical Exam - Exam General: Vital signs noted. No distress. Alert and acting appropriately. This is a 31-year-old female well-nourished well-developed in no acute distress. Front/Back of Body, Lg (Color): 1 - Patient with left facial pustule with indurated area without any fluctuance and swelling around indurated area. Tender to palpate. Pustule area erythema with no drainage surrounding soft tissue swelling with tenderness to palpate. No oral mucosal abscess noted. Uvula is midline and no peritonsillar abscess Size: 1 cm Exam: Yes Tenderness (left facial pustule with soft tissue swelling), Yes Surrounding Cellulites/Erythema (erythema cellulitis at pustule.), Yes Lymphangitis (submental), Yes Normal Neurologic Exam, Yes Normal Circulation ( no clubbing, cyanosis or edema. +2 pulses to all extremities. No neurovascular compromise.), No Fluctuance, No Crepitation, No Heart Murmur (S1, S2. Regular rate and rhythm.) Exam: Neck: Supple, full range of motion. No C-spine tenderness. no adenopathy. No stridor. Lymph: positive submental adenipathy. Mouth: Patient with multiple filling, moist, tongue is normal, no dental tenderness, uvula is midline and oral airways patent. No peritonsillar abscess noted. Lungs: Clear to auscultation bilaterally, no rhonchi wheezes or rales. Normal work of breathing I & D Note - I & D Note I & D Note: Patient with pustule to left facial area with surrounding soft tissue swelling. Possibly area indurated fluctuant. Tender to palpate. Unable to drain due to non-fluctuance. Immunization up-to-date ED Course Vital Signs 03/16/17 12:09 Temperature 98.2 F Pulse Rate 85 Respiratory 18 Rate Blood Pressure 106/66 O2 Sat by Pulse 100 Oximetry - Reevaluation(s) Reevaluation #1: 03/16/17 22:58 Patient given Percocet 5/325 2 tablets and clindamycin 600 mg IM in emergency room without any adverse reaction. Critical care attestation.: If time is entered above; I have spent that time in minutes in the direct care of this critically ill patient, excluding procedure time. ED Disposition Clinical Impression: Skin pustule, Localized soft tissue swelling, Lymphadenopathy, submental Disposition: DC-01 TO HOME OR SELFCARE Is pt being admited?: No Does the pt Need Aspirin: No Condition: Stable Instructions: Lymphadenopathy (ED), Cellulitis (ED) Additional Instructions: Please follow up with her primary care physician as instructed. Follow-up with inorganic chemist as instructed Return to emergency room if affected area to left face increased in size, increase in swelling, erythema, and difficulty opening and closing mouth. Take Tylenol 3 and Motrin as instructed for pain. Take clindamycin as instructed for infection. Keep affected area clean and dry Prescriptions: Acetaminophen/Codeine [Tylenol /Codeine # 3 tab] 1 tab PO Q6H PRN 3 Days #12 tab PRN Reason: Pain, Moderate (4-6) Clindamycin [Clindamycin CAP] 300 mg PO Q8H 10 Days #30 cap Ibuprofen [Motrin 600 MG tab] 600 mg PO Q8H PRN 5 Days #15 tablet PRN Reason: Pain Referrals: your, primary care physician [Other] - 2-3 Days ARUN RATLIFF MD [Staff Physician] - 03/18/17 Forms: Work/School Release Form(ED)
[2017-03-16] MEDS ORDERED: PERCOCET 5/325 PO ONE (21:14)
[2017-03-16] MEDS ORDERED: CLEOCIN IM ONE (21:14)
[2017-03-16 23:19] VITALS: BP 112/59
== END 2017-03-16 23:17 | disposition home or self-care (01) ==
LOC: ED 11:18
DX: R59.1 Generalized enlarged lymph nodes (principal); F17.200 Nicotine dependence, unspecified, uncomplicated; L08.9 Local infection of the skin and subcutaneous tissue, unspecified
CPT/HCPCS: 96372; 99282

== ENCOUNTER 2017-07-22 19:10 | Emergency (ER) | payer MEDICAID ==
[2017-07-22 20:49] VITALS: BP 111/67
[2017-07-23 01:06] LABS: Bilirubin,Urine NEG (Negative); Blood,Urine MOD (Negative); Color,Urine Yellow (Yellow); Mucus,Urine FEW /HPF; Protein,Urine <15 mg/dL mg/dL (Negative); Urobilinogen,Urine < 2.0 mg/dL (<2.0)
[2017-07-23] MEDS ORDERED: TYLENOL ONE (01:17)
[2017-07-23] MEDS ORDERED: TYLENOL PO ONE (01:20)
--- NOTE | 2017-07-23 01:57 | Emergency Department Report ---
ED Female HPI - General Chief complaint: Back Pain/Injury Stated complaint: LOSS OF APPETITE/ABD PAIN Time Seen by Provider: 07/23/17 01:52 Source: patient Mode of arrival: Ambulatory Limitations: No Limitations - History of Present Illness Initial comments: 31-year-old Afro-Citizen Of The [place] female comes in complaining of lower back pain headache and increased urination. Patient reports the onset this a.m. Patient reports a past medical history of neurofibromatosis. She denies any dysuria and no fever with chills denies any nausea vomiting or diarrhea denies abdominal pain reports left flank pain. Does admit to urinary urgency but no dysuria. -: This morning Radiation: L flank Severity: severe Severity scale (0 -10): 8 Quality: sharp, stabbing Consistency: constant Worsens with: movement Are you Now?: No Last Menstrual Period: 06/18/17 EDC: 03/25/18 - Related Data Previous Rx's Medication Instructions Recorded Last Taken Type Docusate Sodium [Colace CAP] 100 mg PO BID PRN #20 capsule 11/01/15 Unknown Rx Cefdinir 300 mg PO BID #20 capsule 06/10/16 Unknown Rx Metoclopramide [Reglan] 10 mg PO QID PRN #30 tablet 10/16/16 Unknown Rx HYDROcodone/APAP 5-325 [Niota 1 each PO Q6HR PRN #8 tablet 12/01/16 Unknown Rx 5/325] Acetaminophen/Codeine [Tylenol 1 tab PO Q6H PRN 3 Days #12 tab 03/16/17 Unknown Rx /Codeine # 3 tab] Clindamycin [Clindamycin CAP] 300 mg PO Q8H 10 Days #30 cap 03/16/17 Unknown Rx Ibuprofen [Motrin 600 MG tab] 600 mg PO Q8H PRN #30 tablet 07/23/17 Unknown Rx Nitrofurantoin Monohyd/M-Cryst 100 mg PO BID #20 capsule 07/23/17 Unknown Rx [Macrobid 100 mg Capsule] Allergies Allergy/AdvReac Type Severity Reaction Status Date / Time No Known Allergies Allergy Verified 10/18/16 17:28 ED Review of Systems ROS: Stated complaint: LOSS OF APPETITE/ABD PAIN Other details as noted in HPI Constitutional: chills Eyes: denies: eye pain, eye discharge, vision change ENT: denies: ear pain, throat pain Respiratory: denies: cough, shortness of breath, wheezing Cardiovascular: denies: chest pain, palpitations Endocrine: no symptoms reported Gastrointestinal: denies: abdominal pain, nausea, diarrhea Genitourinary: urgency, frequency. denies: dysuria, hematuria Musculoskeletal: back pain Skin: denies: rash, lesions Neurological: headache, weakness Psychiatric: denies: anxiety, depression Hematological/Lymphatic: as per HPI ED Past Medical Hx - Past Medical History Previous Medical History?: Yes Additional medical history: NEUROFIBROMATOSIS - Surgical History Past Surgical History?: Yes Additional Surgical History: TUMORS REMOVED FROM BACK AND LEFT FOOT, 2005 - Social History Smoking Status: Current Every Day Smoker Substance Use Type: None - Medications Home Medications: Home Medications Medication Instructions Recorded Confirmed Last Taken Type Docusate Sodium [Colace CAP] 100 mg PO BID PRN #20 capsule 11/01/15 Unknown Rx Cefdinir 300 mg PO BID #20 capsule 06/10/16 Unknown Rx Metoclopramide [Reglan] 10 mg PO QID PRN #30 tablet 10/16/16 Unknown Rx HYDROcodone/APAP 5-325 [Niota 1 each PO Q6HR PRN #8 tablet 12/01/16 Unknown Rx 5/325] Acetaminophen/Codeine [Tylenol 1 tab PO Q6H PRN 3 Days #12 tab 03/16/17 Unknown Rx /Codeine # 3 tab] Clindamycin [Clindamycin CAP] 300 mg PO Q8H 10 Days #30 cap 03/16/17 Unknown Rx Ibuprofen [Motrin 600 MG tab] 600 mg PO Q8H PRN #30 tablet 07/23/17 Unknown Rx Nitrofurantoin Monohyd/M-Cryst 100 mg PO BID #20 capsule 07/23/17 Unknown Rx [Macrobid 100 mg Capsule] ED Physical Exam - General Limitations: No Limitations General appearance: alert, in no apparent distress - Head Head exam: Present: atraumatic, normocephalic - Eye Eye exam: Present: normal appearance - Respiratory Respiratory exam: Present: normal lung sounds bilaterally. Absent: respiratory distress - Cardiovascular Cardiovascular Exam: Present: regular rate, normal rhythm. Absent: systolic murmur, diastolic murmur, rubs, gallop - GI/Abdominal GI/Abdominal exam: Present: soft, normal bowel sounds - Back Exam Back exam: Present: CVA tenderness (L) - Neurological Exam Neurological exam: Present: alert, oriented X3 - Psychiatric Psychiatric exam: Present: normal affect, normal mood - Skin Skin exam: Present: warm, dry, intact, normal color. Absent: rash ED Course Vital Signs 07/22/17 20:44 Temperature 99.8 F H Pulse Rate 101 H Respiratory 20 Rate Blood Pressure 111/67 O2 Sat by Pulse 100 Oximetry ED Medical Decision Making - Medical Decision Making Patient's been evaluated for this provider fast track. I discussed the patient that appears that she has a urinary tract infection. Discussed the patient I' ll place her on antibiotics pain medication and have her follow up with her primary care provider. Patient verbalized understanding. Critical care attestation.: If time is entered above; I have spent that time in minutes in the direct care of this critically ill patient, excluding procedure time. ED Disposition Clinical Impression: UTI (urinary tract infection) Qualifiers: Urinary tract infection type: acute cystitis Hematuria presence: with hematuria Qualified Code(s): N30.01 - Acute cystitis with hematuria Disposition: TO HOME OR SELFCARE Is pt being admited?: No Does the pt Need Aspirin: No Condition: Stable Instructions: Urinary Tract Infection in Women (ED) Additional Instructions: Please complete antibiotics as prescribed. Please take pain medication as prescribed with food. Follow-up with her primary care provider in the next 3-5 days. Prescriptions: Ibuprofen [Motrin 600 MG tab] 600 mg PO Q8H PRN #30 tablet PRN Reason: Pain Nitrofurantoin Monohyd/M-Cryst [Macrobid 100 mg Capsule] 100 mg PO BID #20 capsule Referrals: PRIMARY CARE, [Primary Care Provider] - 3-[address] [facility] [Provider Group] - 3-5 Days Forms: Work/School Release Form(ED)
[2017-07-23 02:19] LABS: HCG Qualitative,Urine Negative (Negative)
== END 2017-07-23 02:40 | disposition home or self-care (01) ==
LOC: ED 19:10
DX: N30.01 Acute cystitis with hematuria (principal); F17.200 Nicotine dependence, unspecified, uncomplicated
CPT/HCPCS: 81001; 81025; 99283

== ENCOUNTER 2017-07-24 09:06 | Emergency (ER) | payer MEDICAID ==
--- NOTE | 2017-07-24 10:06 | Emergency Department Report ---
Chief Complaint: Urogenital-Female Stated Complaint: FLU LIKE SYMPTOMS Time Seen by Provider: 07/24/17 09:40 - HPI History of Present Illness: 31-year-old female presents with complaint of some burning with urination and generalized aches and pains. She was diagnosed 2 days ago with a urinary tract infection and placed on Macrobid and Motrin. She says that the medications are not working. She has a history of neurofibromatosis. She has a PCP but has not seen them regarding her symptoms. No vaginal bleeding or discharge. She complains of a headache but no vision change or neurological deficits. - ROS Review of Systems: Positive for dysuria, body aches, headache Negative for fever, nausea, vomiting, vaginal bleeding or discharge - Exam Vital Signs: Vital Signs 07/24/17 09:13 Temperature 98.1 F Pulse Rate 87 Blood Pressure 113/57 O2 Sat by Pulse 100 Oximetry Physical Exam: Patient is sitting there comfortably and does not appear in any acute distress. Normal sounding heart and lungs to auscultation. MSE screening note: Focused history and physical exam performed. Due to findings the following was ordered: I have ordered a CBC, BMP, urinalysis and urine test and the patient will be seen on the Q-track side. ED Disposition for MSE Condition: Stable Referrals: PRIMARY CARE, [Primary Care Provider] - 3-5 Days
--- NOTE | 2017-07-24 10:28 | Emergency Department Report ---
ED Female HPI - General Chief complaint: Urogenital-Female Stated complaint: FLU LIKE SYMPTOMS Time Seen by Provider: 07/24/17 09:40 Source: patient, family Mode of arrival: Ambulatory Limitations: No Limitations - History of Present Illness Initial comments: 31-year-old female presents with complaint of some burning with urination and generalized aches and pains. She was diagnosed 2 days ago with a urinary tract infection and placed on Macrobid and Motrin. She says that the medications are not working. She has a history of neurofibromatosis. She has a PCP but has not seen them regarding her symptoms. No vaginal bleeding or discharge. She complains of a headache but no vision change or neurological deficits. MD Complaint: dysuria, other (nausea vomiting, chills, flank pain I) Onset/Timin -: days(s) Location: suprapubic, other (left flank) Radiation: non-radiating Severity scale (0 -10): 3 Quality: cramping (cramping the pelvic area), burning (burning with urination), aching (he came to left flank) Consistency: constant, intermittent Improves with: urination Worsens with: urination, movement Are you Now?: No Last Menstrual Period: 06/26/17 EDC: 04/02/18 Associated Symptoms: abdominal pain, nausea/vomiting, fever/chills, loss of appetite, dysuria. denies: vaginal discharge, vaginal bleeding, headaches, hematuria, rash, seizure, shortness of breath, syncope, weakness - Related Data Sexually active: No Previous Rx's Medication Instructions Recorded Last Taken Type Docusate Sodium [Colace CAP] 100 mg PO BID PRN #20 capsule 11/01/15 Unknown Rx Cefdinir 300 mg PO BID #20 capsule 06/10/16 Unknown Rx Metoclopramide [Reglan] 10 mg PO QID PRN #30 tablet 10/16/16 Unknown Rx HYDROcodone/APAP 5-325 [Charlo 1 each PO Q6HR PRN #8 tablet 12/01/16 Unknown Rx 5/325] Acetaminophen/Codeine [Tylenol 1 tab PO Q6H PRN 3 Days #12 tab 03/16/17 Unknown Rx /Codeine # 3 tab] Clindamycin [Clindamycin CAP] 300 mg PO Q8H 10 Days #30 cap 03/16/17 Unknown Rx Ibuprofen [Motrin 600 MG tab] 600 mg PO Q8H PRN #30 tablet 07/23/17 Unknown Rx Nitrofurantoin Monohyd/M-Cryst 100 mg PO BID #20 capsule 07/23/17 Unknown Rx [Macrobid 100 mg Capsule] Levofloxacin [Levaquin] 750 mg PO QDAY 6 Days #6 tablet 07/24/17 Unknown Rx Naproxen 500 mg PO Q12H PRN #12 tablet 07/24/17 Unknown Rx Ondansetron [Zofran Odt] 4 mg PO Q6H PRN #12 tab.rapdis 07/24/17 Unknown Rx Allergies Allergy/AdvReac Type Severity Reaction Status Date / Time No Known Allergies Allergy Verified 10/18/16 17:28 ED Review of Systems ROS: Stated complaint: FLU LIKE SYMPTOMS Other details as noted in HPI Constitutional: denies: chills, fever Eyes: denies: eye pain, eye discharge, vision change ENT: denies: ear pain, throat pain Respiratory: denies: cough, shortness of breath, SOB with exertion, SOB at rest , stridor, wheezing Cardiovascular: denies: chest pain, palpitations, edema, syncope Endocrine: no symptoms reported Gastrointestinal: abdominal pain, nausea, vomiting. denies: diarrhea, constipation, hematemesis, melena, hematochezia Genitourinary: dysuria. denies: urgency, frequency, hematuria, discharge Musculoskeletal: back pain (left flank pain). denies: joint swelling, arthralgia Skin: denies: rash, lesions Neurological: denies: headache, weakness, numbness, paresthesias, confusion, abnormal gait, vertigo ED Past Medical Hx - Past Medical History Previous Medical History?: Yes Additional medical history: NEUROFIBROMATOSIS - Surgical History Past Surgical History?: Yes Additional Surgical History: TUMORS REMOVED FROM BACK AND LEFT FOOT, 2004 - Family History Family history: hypertension - Social History Smoking Status: Current Every Day Smoker Substance Use Type: None Other Social History: Single - Medications Home Medications: Home Medications Medication Instructions Recorded Confirmed Last Taken Type Docusate Sodium [Colace CAP] 100 mg PO BID PRN #20 capsule 11/01/15 Unknown Rx Cefdinir 300 mg PO BID #20 capsule 06/10/16 Unknown Rx Metoclopramide [Reglan] 10 mg PO QID PRN #30 tablet 10/16/16 Unknown Rx HYDROcodone/APAP 5-325 [Charlo 1 each PO Q6HR PRN #8 tablet 12/01/16 Unknown Rx 5/325] Acetaminophen/Codeine [Tylenol 1 tab PO Q6H PRN 3 Days #12 tab 03/16/17 Unknown Rx /Codeine # 3 tab] Clindamycin [Clindamycin CAP] 300 mg PO Q8H 10 Days #30 cap 03/16/17 Unknown Rx Ibuprofen [Motrin 600 MG tab] 600 mg PO Q8H PRN #30 tablet 07/23/17 Unknown Rx Nitrofurantoin Monohyd/M-Cryst 100 mg PO BID #20 capsule 07/23/17 Unknown Rx [Macrobid 100 mg Capsule] Levofloxacin [Levaquin] 750 mg PO QDAY 6 Days #6 tablet 07/24/17 Unknown Rx Naproxen 500 mg PO Q12H PRN #12 tablet 07/24/17 Unknown Rx Ondansetron [Zofran Odt] 4 mg PO Q6H PRN #12 tab.rapdis 07/24/17 Unknown Rx ED Physical Exam - General Limitations: No Limitations General appearance: alert, in no apparent distress - Head Head exam: Present: atraumatic, normocephalic, normal inspection - Eye Eye exam: Present: normal appearance, PERRL, EOMI. Absent: conjunctival injection Pupils: Present: normal accommodation - ENT ENT exam: Present: normal exam, normal orophraynx, mucous membranes moist - Neck Neck exam: Present: normal inspection, full ROM. Absent: tenderness, lymphadenopathy - Respiratory Respiratory exam: Present: normal lung sounds bilaterally. Absent: respiratory distress, chest wall tenderness - Cardiovascular Cardiovascular Exam: Present: regular rate, normal rhythm, normal heart sounds - GI/Abdominal GI/Abdominal exam: Present: soft, normal bowel sounds. Absent: distended, tenderness, guarding, rebound, rigid, organomegaly, mass, bruit, pulsatile mass , hernia - Extremities Exam Extremities exam: Present: normal inspection, full ROM, normal capillary refill. Absent: tenderness, pedal edema, joint swelling, calf tenderness - Back Exam Back exam: Present: normal inspection, full ROM, CVA tenderness (L), other ( ambulates without any difficulties). Absent: tenderness, CVA tenderness (R), muscle spasm, paraspinal tenderness, vertebral tenderness, rash noted - Neurological Exam Neurological exam: Present: alert, oriented X3, normal gait - Psychiatric Psychiatric exam: Present: normal affect, normal mood - Skin Skin exam: Present: warm, dry, intact, normal color. Absent: rash ED Course Vital Signs 07/24/17 07/24/17 07/24/17 09:13 13:07 13:37 Temperature 98.1 F Pulse Rate 87 Respiratory 18 18 Rate Blood Pressure 113/57 Blood Pressure [Left] O2 Sat by Pulse 100 Oximetry 07/24/17 07/24/17 15:14 16:06 Temperature 100.3 F H Pulse Rate 100 H Respiratory 18 20 Rate Blood Pressure Blood Pressure 102/60 [Left] O2 Sat by Pulse 100 Oximetry - Reevaluation(s) Reevaluation #1: 07/24/17 12:43 Patient left CVA tenderness, white blood cell elevated with bacterial shift to the left, urinalysis with increase in white blood cell, patient with nausea and vomiting and, fever and chills and body ache. Patient to receive IV fluid normal saline x1 litre, morphine 4 mg IV, Zofran 4 mg IV, Reglan 10 mg IV. Levaquin 750 mg by mouth and awaits CT scan of the abdomen and pelvis with iv contrast to check for stones. Reevaluation #2: 07/24/17 14:10 Pt stable no abdominal pain at present. Abd NTTP. Denies nausea Reevaluation #3: 07/24/17 15:05 Patient's stable and she is requesting in pain medication for pain at 4 out of 10. She'll be given Toradol 30 mg IV and I discussed results of CT scan with her and she voiced understanding. Abdomen is nontender to palpate. Nausea has resolved Reevaluation #4: 07/24/17 16:24 Patient stable, pain-free, feeling better and tolerating fluids. Denies any nausea. ED Medical Decision Making - Lab Data Result diagrams: 07/24/17 10:24 07/24/17 10:24 Lab Results 07/24/17 07/24/17 07/24/17 Range/Units 10:15 10:24 10:24 WBC 18.3 H (4.5-11.0) K/mm3 RBC 4.91 (3.65-5.03) M/mm3 Hgb 10.7 (10.1-14.3) gm/dl Hct 33.5 (30.3-42.9) % MCV 68 L (79-97) fl MCH 22 L (28-32) pg MCHC 32 (30-34) % RDW 19.0 H (13.2-15.2) % Plt Count 218 (140-440) K/mm3 Lymph % (Auto) 2.7 L (13.4-35.0) % [place] % (Auto) 11.0 H (0.0-7.3) % Eos % (Auto) 0.0 (0.0-4.3) % Baso % (Auto) 0.1 (0.0-1.8) % Lymph # 0.5 L (1.2-5.4) K/mm3 [place] # 2.0 H (0.0-0.8) K/mm3 Eos # 0.0 (0.0-0.4) K/mm3 Baso # 0.0 (0.0-0.1) K/mm3 Seg Neutrophils % 86.2 H (40.0-70.0) % Seg Neutrophils # 15.8 H (1.8-7.7) K/mm3 Sodium 132 L (137-145) mmol/L Potassium 4.1 (3.6-5.0) mmol/L Chloride 100.1 (98-107) mmol/L Carbon Dioxide 20 L (22-30) mmol/L Anion Gap 16 mmol/L BUN 12 (7-17) mg/dL Creatinine 0.6 L (0.7-1.2) mg/dL Estimated GFR > 60 ml/min BUN/Creatinine Ratio 20 % Glucose 92 (65-100) mg/dL Calcium 9.2 (8.4-10.2) mg/dL Urine Color Yellow (Yellow) Urine Turbidity Clear (Clear) Urine pH 5.0 (5.0-7.0) Ur Specific [place] 1.017 (1.003-1.030) Urine Protein 100 mg/dl (Negative) mg/dL Urine Glucose (UA) Neg (Negative) mg/dL Urine Ketones 20 (Negative) mg/dL Urine Blood Mod (Negative) Urine Nitrite Neg (Negative) Ur Reducing Substances Not Reportable Urine Bilirubin Neg (Negative) Urine Ictotest Not Reportable Urine Urobilinogen < 2.0 (<2.0) mg/dL Ur Leukocyte Esterase Lg (Negative) Urine WBC (Auto) 45.0 H (0.0-6.0) /HPF Urine RBC (Auto) 9.0 (0.0-6.0) /HPF U Epithel Cells (Auto) 5.0 (0-13.0) /HPF Urine Bacteria (Auto) 1+ (Negative) /HPF Urine Mucus Few /HPF Urine Yeast (Budding) 1+ /HPF Urine HCG, Qual Negative (Negative) Urine culture sent - Radiology Data Radiology results: report reviewed CT scan of the abdomen and pelvis with IV contrast was dictated by JOSE DAVID radiologist and report given via telephone since radiology system is dysfunctional today. It was reported that patient has normal appendix, no obstructive bowel disease, no inflammatory bowel disease, no obstructive renal or ureteral calculus. No hydronephrosis. 1.5 cm cyst in left kidney which remains the same when compared to previous scan. There is large amount of stool within the colon - Medical Decision Making ED Course DX: 1:Abdominal pain- resolved. Morphine 2mg iv, toradol 30 mg IV. will send home on naproxen. CT scan of abdomen and Pelvis without contrast normal except left renal cyst , large amount of stool in Colon other marin normal study. See radiology report for details. report reviewed CBC with increas wbc and bacterial CMP with NA 132, Neg . UA positive ketones , bld wbc Leuk est, prorein. infection. See lab section for details 2: Left renal Cyst- referred to Nephrology 3:Nausea and vomiting - resolved. Zofran 4 mg iv, reglan 10 mg iv in ed . Will send home on Zofran 4: Pyelonephritis- seen 2 days ago and placed on macrobid for cystitis . Not better. Levaquin 750 mg po in ED . UA worst than 2 days ago. infection, CX sent. Stop Macrobid. Will send home on Levaquin for additional 6 days 5: dehydration- NS x 1 liter. PO challenge and tolerated juices without NV 6: Constipation- found on CT scan, will d/c with stool softner 7-Leukocytosis- from infection. Pt on ABX 8: Fever- lowgrade. Motrin 800mg in ed and will send home on antipyretic. Educated on increasing fluid intake 9: Hyponatremia with NA of 132- frm NV . NS IVF x 1 liter and now drinking Prescription for Zofran, Naproxen and levaquin, educated on meds and side effects referral to Washer Operator for management of Renal cyst referal to GI for constipation F/U with PCP Educated on diagnosis CT scan results and labs explained to patient patient voiced understanding of discharge diagnosis, treatment plan, follow up. reports feeling better. Discharge from ed with family in stable condition - Differential Diagnosis Pyelonephritis, cystitis, ovarian cyst, OBS,enetritis, renal stone, Critical care attestation.: If time is entered above; I have spent that time in minutes in the direct care of this critically ill patient, excluding procedure time. ED Disposition Clinical Impression: Abdominal pain in female, Pyelonephritis, Hyponatremia, Renal cyst, left, Left flank pain Nausea & vomiting Qualifiers: Vomiting type: unspecified Vomiting Intractability: non-intractable Qualified Code(s): R11.2 - Nausea with vomiting, unspecified Leukocytosis, unspecified Qualifiers: Leukocytosis type: unspecified Qualified Code(s): D72.829 - Elevated white blood cell count, unspecified Constipated Qualifiers: Constipation type: unspecified constipation type Qualified Code(s): K59.00 - Constipation, unspecified Disposition: DC-01 TO HOME OR SELFCARE Is pt being admited?: No Does the pt Need Aspirin: No Condition: Stable Instructions: Constipation (ED), Dehydration (ED), Urinary Tract Infection in Women (ED), High Fiber Diet (ED), Hyponatremia (ED), Acute Pyelonephritis (ED), Acute Abdominal Pain (ED), Leukocytosis (ED), Flank Pain (ED) Additional Instructions: Please follow up with oil inspector regarding and cyst on your left kidney. This was seen on previous CT scan and is unchanged but you have to follow-up for evaluation. A nephrology referral in discharge instruction paperwork Increase her fluid intake to at least 2 L of water/cranberry juice/Gatorade daily A blood carbonated beverages. Received her first dose of antibiotic emergency room for urinary tract infection and he will need to take for another 6 days starting on 07/25/2017. Please avoid doing any strenuous activity to include walking, running and anything to do with your legs that are strenuous as antibiotic you are taking for kidney infection can cause rupture tendon especially Achilles tendon Follow-up with her primary care physician tomorrow Take Zofran as prescribed for nausea Take naproxen for abdominal pain and flank pain. Your CT scan is showing that you have large amount of stool in your colon and I prescribed a laxative. Please take 1 and increase fluid intake and also see discharge instruction on high fiber diet Prescriptions: Levofloxacin [Levaquin] 750 mg PO QDAY 6 Days #6 tablet Naproxen 500 mg PO Q12H PRN #12 tablet PRN Reason: Pain Ondansetron [Zofran Odt] 4 mg PO Q6H PRN #12 tab.rapdis PRN Reason: Nausea And Vomiting Referrals: PRIMARY CARE, [Primary Care Provider] - 07/25/17 ALEXSANDRA MACEDO MD [Staff Physician] - 07/25/17 Forms: Accompanied Note, Work/School Release Form(ED)
[2017-07-24 11:06] LABS: Basophils % (Auto) 0.1 % (0.0-1.8); Hematocrit 33.5 % (30.3-42.9); Hemoglobin 10.7 gm/dl (10.1-14.3); Lymphocytes # (Auto) 0.5 K/mm3 (1.2-5.4); Lymphocytes % (Auto) 2.7 % (13.4-35.0); Mean Corpuscular HGB Conc 32 % (30-34); Mean Corpuscular Hemoglobin 22 pg (28-32); Mean Corpuscular Volume 68 fl (79-97); Platelet Count 218 K/mm3 (140-440); Red Blood Count 4.91 M/mm3 (3.65-5.03)
[2017-07-24 11:18] LABS: HCG Qualitative,Urine Negative (Negative)
[2017-07-24 11:20] LABS: Bacteria,Urine 1+ /HPF (Negative); Bilirubin,Urine NEG (Negative); Blood,Urine MOD (Negative); Color,Urine Yellow (Yellow); Mucus,Urine FEW /HPF; Urobilinogen,Urine < 2.0 mg/dL (<2.0)
[2017-07-24 11:45] LABS: BUN/Creatinine Ratio 20; Blood Urea Nitrogen 12 mg/dL (7-17); Calcium 9.2 mg/dL (8.4-10.2); Hemolysis Index 15
[2017-07-24] MEDS ORDERED: NACL 0.9% 1000 ML 1,000 ML IV ONE (12:39)
[2017-07-24] MEDS ORDERED: REGLAN IV ONE (12:39)
[2017-07-24] MEDS ORDERED: LEVAQUIN PO ONE (12:39)
[2017-07-24] MEDS ORDERED: ZOFRAN IV ONE (12:39)
[2017-07-24] MEDS ORDERED: MORPHINE IV ONE (12:42)
[2017-07-24] MEDS ORDERED: REGLAN ONE ×2 (12:57)
[2017-07-24] MEDS ORDERED: LEVAQUIN ONE ×2 (12:57)
[2017-07-24] MEDS ORDERED: ZOFRAN ONE ×2 (12:58)
[2017-07-24] MEDS ORDERED: MORPHINE ONE ×4 (12:58)
[2017-07-24] MEDS ORDERED: NACL 0.9% 1000 ML 1,000 ML ONE ×2 (12:58)
[2017-07-24] MEDS ORDERED: TORADOL IV ONE (15:05)
[2017-07-24] MEDS ORDERED: TORADOL ONE ×2 (15:11)
[2017-07-24] MEDS ORDERED: MOTRIN ONE (16:01)
[2017-07-24] MEDS ORDERED: MOTRIN PO ONE (16:02)
[2017-07-24 16:07] VITALS: BP 102/60
== END 2017-07-24 17:28 | disposition home or self-care (01) ==
LOC: ED 09:06
DX: N12 Tubulo-interstitial nephritis, not specified as acute or chronic (principal); E87.1 Hypo-osmolality and hyponatremia; N28.1 Cyst of kidney, acquired; K59.00 Constipation, unspecified; D72.829 Elevated white blood cell count, unspecified; F17.200 Nicotine dependence, unspecified, uncomplicated
CPT/HCPCS: 36415; 74176; 80048; 81001; 81025; 85025; 87086; 96361; 96374; 96375; 99284; J1885; J2270; J2405; J2765; J7030

== ENCOUNTER 2017-11-23 17:26 | Inpatient (IN) | payer MEDICAID ==
[2017-11-23] MEDS ORDERED: NACL 0.9% 500 ML 500 ML IV ONE (17:39)
[2017-11-23] MEDS ORDERED: TYLENOL ONE (17:41)
[2017-11-23] MEDS ORDERED: TYLENOL PO ONE (17:47)
[2017-11-23 18:04] LABS: HCG Qualitative,Urine Negative (Negative)
[2017-11-23 18:27] LABS: Bilirubin,Urine NEG (Negative); Blood,Urine MOD (Negative); Color,Urine Yellow (Yellow)
[2017-11-23 18:30] LABS: Basophils # (Auto) 0.1 K/mm3 (0.0-0.1); Basophils % (Auto) 0.6 % (0.0-1.8); Eosinophils % (Auto) 0.1 % (0.0-4.3); Hematocrit 30.4 % (30.3-42.9); Hemoglobin 9.5 gm/dl (10.1-14.3); Lymphocytes # (Auto) 0.9 K/mm3 (1.2-5.4); Lymphocytes % (Auto) 7.3 % (13.4-35.0); Mean Corpuscular HGB Conc 31 % (30-34); Mean Corpuscular Volume 72 fl (79-97); Monocytes # (Auto) 1.1 K/mm3 (0.0-0.8); Monocytes % (Auto) 9.7 % (0.0-7.3); Platelet Count 219 K/mm3 (140-440); Red Blood Count 4.24 M/mm3 (3.65-5.03); Red Cell Distribution Width 18.4 % (13.2-15.2)
[2017-11-23 18:36] LABS: Mean Corpuscular Hemoglobin 22 pg (28-32)
[2017-11-23 18:40] LABS: INR 1.24 (0.87-1.13)
[2017-11-23 18:45] LABS: Alanine Aminotransferase 6 units/L (7-56); BUN/Creatinine Ratio 23; Blood Urea Nitrogen 14 mg/dL (7-17); Calcium 8.9 mg/dL (8.4-10.2); Hemolysis Index 0
--- NOTE | 2017-11-23 18:58 | Emergency Department Report ---
ED Neck Pain/Injury HPI - General Chief Complaint: Neck Pain/Injury Stated Complaint: NECK PAIN/CHILLS/ Time Seen by Provider: 11/23/17 18:32 Source: patient Mode of arrival: Ambulatory Limitations: No Limitations - History of Present Illness Initial Comments: Patient complains of neck stiffness and headache associated with fever and chills which started 2 days ago. She denies any chest pain, abdominal pain, nausea, vomiting and diarrhea. Patient's also denies any recent sick contact. 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 MD Complaint: neck pain -: Gradual, days(s) (2) Place: home Severity: severe Severity scale (0 -10): 9 Quality: dull, aching Consistency: constant Improves With: none Worsens With: none Associated Symptoms: headache, fever Treatments Prior to Arrival: Acetaminophen - Related Data Previous Rx's Medication Instructions Recorded Last Taken Type Docusate Sodium [Colace CAP] 100 mg PO BID PRN #20 capsule 11/01/15 Unknown Rx Cefdinir 300 mg PO BID #20 capsule 06/10/16 Unknown Rx Metoclopramide [Reglan] 10 mg PO QID PRN #30 tablet 10/16/16 Unknown Rx HYDROcodone/APAP 5-325 [[place] 1 each PO Q6HR PRN #8 tablet 12/01/16 Unknown Rx 5/325] Acetaminophen/Codeine [Tylenol 1 tab PO Q6H PRN 3 Days #12 tab 03/16/17 Unknown Rx /Codeine # 3 tab] Clindamycin [Clindamycin CAP] 300 mg PO Q8H 10 Days #30 cap 03/16/17 Unknown Rx Ibuprofen [Motrin 600 MG tab] 600 mg PO Q8H PRN #30 tablet 07/23/17 Unknown Rx Nitrofurantoin Monohyd/M-Cryst 100 mg PO BID #20 capsule 07/23/17 Unknown Rx [Macrobid 100 mg Capsule] Naproxen 500 mg PO Q12H PRN #12 tablet 07/24/17 Unknown Rx Ondansetron [Zofran Odt] 4 mg PO Q6H PRN #12 tab.rapdis 07/24/17 Unknown Rx levoFLOXacin [Levaquin] 750 mg PO QDAY 6 Days #6 tablet 07/24/17 Unknown Rx Allergies Allergy/AdvReac Type Severity Reaction Status Date / Time No Known Allergies Allergy Verified 10/18/16 17:28 ED Review of Systems ROS: Stated complaint: NECK PAIN/CHILLS/ Other details as noted in HPI Comment: All other systems reviewed and negative Constitutional: chills, fever Eyes: denies: eye pain ENT: denies: ear pain, throat pain Respiratory: shortness of breath. denies: cough Cardiovascular: denies: chest pain, palpitations, dyspnea on exertion, syncope Endocrine: no symptoms reported Gastrointestinal: denies: abdominal pain, nausea, vomiting, diarrhea Genitourinary: denies: urgency, dysuria, frequency Musculoskeletal: other (neck pain and stiffness). denies: back pain, joint swelling Skin: denies: rash, lesions Neurological: headache. denies: weakness, numbness, paresthesias, confusion Psychiatric: denies: anxiety, depression Hematological/Lymphatic: denies: easy bleeding, easy bruising ED Past Medical Hx - Past Medical History Additional medical history: NEUROFIBROMATOSIS - Surgical History Additional Surgical History: TUMORS REMOVED FROM BACK AND LEFT FOOT, 2004 - Social History Smoking Status: Current Every Day Smoker Substance Use Type: None - Medications Home Medications: Home Medications Medication Instructions Recorded Confirmed Last Taken Type Docusate Sodium [Colace CAP] 100 mg PO BID PRN #20 capsule 11/01/15 Unknown Rx Cefdinir 300 mg PO BID #20 capsule 06/10/16 Unknown Rx Metoclopramide [Reglan] 10 mg PO QID PRN #30 tablet 10/16/16 Unknown Rx HYDROcodone/APAP 5-325 [[place] 1 each PO Q6HR PRN #8 tablet 12/01/16 Unknown Rx 5/325] Acetaminophen/Codeine [Tylenol 1 tab PO Q6H PRN 3 Days #12 tab 03/16/17 Unknown Rx /Codeine # 3 tab] Clindamycin [Clindamycin CAP] 300 mg PO Q8H 10 Days #30 cap 03/16/17 Unknown Rx Ibuprofen [Motrin 600 MG tab] 600 mg PO Q8H PRN #30 tablet 07/23/17 Unknown Rx Nitrofurantoin Monohyd/M-Cryst 100 mg PO BID #20 capsule 07/23/17 Unknown Rx [Macrobid 100 mg Capsule] Naproxen 500 mg PO Q12H PRN #12 tablet 07/24/17 Unknown Rx Ondansetron [Zofran Odt] 4 mg PO Q6H PRN #12 tab.rapdis 07/24/17 Unknown Rx levoFLOXacin [Levaquin] 750 mg PO QDAY 6 Days #6 tablet 07/24/17 Unknown Rx ED Physical Exam - General Limitations: No Limitations General appearance: alert, in no apparent distress - Head Head exam: Present: atraumatic, normocephalic, normal inspection - Eye Eye exam: Present: normal appearance, PERRL, EOMI Pupils: Present: normal accommodation - ENT ENT exam: Present: normal exam, normal orophraynx, mucous membranes moist - Neck Neck exam: Present: normal inspection, tenderness, meningismus. Absent: full ROM - Respiratory Respiratory exam: Present: normal lung sounds bilaterally. Absent: respiratory distress, wheezes, rales, rhonchi, stridor - Cardiovascular Cardiovascular Exam: Present: normal rhythm, tachycardia, normal heart sounds - GI/Abdominal GI/Abdominal exam: Present: soft, normal bowel sounds. Absent: distended, tenderness, guarding, rebound, rigid - Extremities Exam Extremities exam: Present: normal inspection, full ROM, normal capillary refill. Absent: tenderness - Back Exam Back exam: Present: normal inspection, full ROM. Absent: tenderness, CVA tenderness (R), CVA tenderness (L) - Neurological Exam Neurological exam: Present: alert, oriented X3, CN II-XII intact - Psychiatric Psychiatric exam: Present: normal affect, normal mood - Skin Skin exam: Present: warm, dry, intact, normal color, other (Neurofibromatosis) ED Course Vital Signs 11/23/17 11/23/17 11/23/17 17:30 17:39 19:47 Temperature 101.1 F H 102.3 F H Pulse Rate 101 H 100 H Respiratory 20 20 18 Rate Blood Pressure 123/55 Blood Pressure [113/56] O2 Sat by Pulse 100 Oximetry 11/23/17 20:57 Temperature 99.6 F Pulse Rate 83 Respiratory 18 Rate Blood Pressure Blood Pressure 109/62 [113/56] O2 Sat by Pulse 100 Oximetry - Reevaluation(s) Reevaluation #1: 11/23/17 21:37 I discussed patients care with the hospitalist cone worker Dr Renee. He will admit patient for further evaluation and management. He will follow up on the CSF result. - Lumbar Puncture Consent Obtained: written consent Time Out Performed: Yes Indication for Procedure: headache, fever work up Patient Position: left lateral decubitus Skin Prep: Povidone-Iodine 1% Local Anesthetic Used: Lidocaine 1% Amount of anesthesia used (mls): 4 Spinal Needle Gauge: 20G Spinal Needle Length: 3.5in Interspace Used: L4-L5 Opening Pressure (cmH20): 21 Fluid Initially Obtained: clear Complications: none Patient Tolerated Procedure: well ED Medical Decision Making - Lab Data Result diagrams: 11/23/17 17:54 11/23/17 17:54 - EKG Data -: EKG Interpreted by Me EKG shows normal: sinus rhythm Rate: tachycardia (105) - EKG Data When compared to previous EKG there are: previous EKG unavailable 11/23/17 19:23 No STEMI. - Radiology Data Radiology results: report reviewed, image reviewed - Medical Decision Making Possible Meningitis. Sepsis. Fever. Critical Care Time: Yes Critical care time in (mins) excluding proc time.: 50 Critical care attestation.: If time is entered above; I have spent that time in minutes in the direct care of this critically ill patient, excluding procedure time. ED Disposition Clinical Impression: Neck stiffness Headache Qualifiers: Headache type: unspecified Headache chronicity pattern: unspecified pattern Intractability: intractable Qualified Code(s): R51 - Headache Fever Qualifiers: Fever type: unspecified Qualified Code(s): R50.9 - Fever, unspecified Sepsis Qualifiers: Sepsis type: sepsis due to unspecified organism Qualified Code(s): A41.9 - Sepsis, unspecified organism UTI (urinary tract infection) Qualifiers: Urinary tract infection type: acute cystitis Hematuria presence: without hematuria Qualified Code(s): N30.00 - Acute cystitis without hematuria Disposition: OP ADMIT IP TO THIS HOSP Is pt being admited?: Yes Does the pt Need Aspirin: No Condition: Stable Referrals: PRIMARY CARE, [Primary Care Provider] - 3-5 Days Time of Disposition: 21:24
[2017-11-23] MEDS ORDERED: NACL 0.9% 1000 ML 1,000 ML IV ONE (18:59)
--- NOTE | 2017-11-23 19:32 | XRay Report ---
FINAL REPORT EXAM: XR CHEST 1V AP HISTORY: possible Sepsis TECHNIQUE: Frontal portable view of the chest Comparison: None FINDINGS: There is no evidence of infiltrate, pneumothorax or pleural fluid collection. The cardiomediastinal silhouette is normal in appearance. The bony structures are unremarkable. IMPRESSION: 1. No evidence of an acute pulmonary process.
--- NOTE | 2017-11-23 20:04 | Cat Scan Report ---
FINAL REPORT EXAM: CT HEAD/BRAIN WO CON HISTORY: Headache TECHNIQUE: 2.5 millimeter axial images from the skullbase to the vertex. Comparison: Head CT dated November 23, 2015 FINDINGS: There is no evidence of an acute intracranial process, intracranial hemorrhage or mass effect. The ventricles are normal size. The visualized portions of the orbits, paranasal and mastoid sinuses are unremarkable. The bony structures are unremarkable in appearance. IMPRESSION: 1. No evidence of an acute intracranial process, intracranial hemorrhage or mass effect.
[2017-11-23] MEDS ORDERED: ROCEPHIN/NS 2 GM/100 ML 2 GM/100 ML BAG IV ONE (20:11)
[2017-11-23] MEDS ORDERED: SUBLIMAZE IV ONE (21:13)
[2017-11-23 21:47] LABS: Appearance,CSF Clear; Red Blood Cell,CSF 97 /mm3 (0-0); White Blood Cell,CSF 1 /mm3 (1-10)
[2017-11-23 21:51] LABS: INR 1.38 (0.87-1.13)
[2017-11-23 21:52] LABS: Partial Thromboplastin Time 34.1 Sec. (24.2-36.6)
[2017-11-23 21:59] LABS: Total Cells Counted 0 /mm3
[2017-11-23 22:00] LABS: Basophils CSF 0 %
[2017-11-23 22:14] LABS: Glucose,CSF 65 mg/dL
[2017-11-23] MEDS ORDERED: MORPHINE IV ONE (23:29)
[2017-11-23] MEDS ORDERED: ZOFRAN IV ONE (23:29)
[2017-11-24] MEDS ORDERED: MORPHINE IV ONE (03:50)
[2017-11-24] MEDS: ZOSYN/NS 3.375GM/50ML 3.375 GM/50 ML BAG IV SCH ×2 (06:09→13:20)
--- NOTE | 2017-11-24 09:38 | History and Physical Report ---
CHIEF COMPLAINT: Neck pain. OTHER COMPLAINTS: Include fever and chills. 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 There is no history of chest pain, no history of shortness of breath. No history of nausea, vomiting or diarrhea. Also, there is no history of nasal congestion or runny nose. PAST MEDICAL HISTORY: Pertinent for neurofibromatosis. PAST SURGICAL HISTORY: Pertinent for tumor removal from the back and left foot. FAMILY HISTORY: Family history is noncontributory. SOCIAL HISTORY: The patient smokes cigarettes, does not drink alcohol and does not use illicit drugs. MEDICATIONS: The patient is on docusate sodium 100 mg by mouth twice daily, cefdinir 300 mg by mouth twice daily, Reglan 10 mg by mouth t.i.d., [place] 5/325 mg by mouth every 6 hours, Tylenol No. 3 one by mouth every 6 hours as needed for pain. The patient is also on clindamycin 300 mg by mouth daily and ibuprofen 600 mg by mouth every 8 hours as needed for pain and Macrobid 100 mg by mouth twice daily. The patient is also on naproxen 500 mg by mouth every 12 hours as needed for pain and Zofran 4 mg by mouth every 6 hours for nausea and vomiting and Levaquin 750 mg daily. ALLERGIES: There are no known drug allergies. REVIEW OF SYSTEMS: CONSTITUTIONAL: There is fever, there is chills, but no diaphoresis. HEENT: There is headache, but no sore throat. CARDIOVASCULAR SYSTEM: There is no chest pain or orthopnea. RESPIRATORY: There is no shortness of breath or cough. GASTROINTESTINAL SYSTEM: There is no nausea, no vomiting, no abdominal pain, diarrhea or constipation. NEUROLOGICAL SYSTEM: There is no numbness, no dizziness, no altered mental status. MUSCULOSKELETAL SYSTEM: There is neck pain, but no joint pain or swelling. DERMATOLOGICAL SYSTEM: There is no skin rash or itching. GENITOURINARY SYSTEM: There is no dysuria, hematuria or flank pain. Rest of system review is normal. PHYSICAL EXAMINATION: GENERAL: At the time of exam, the patient was found to be alert, oriented x 3 and not in acute distress. VITAL SIGNS: Initial vital signs at the time of presentation showed temperature of 101.1 degrees Fahrenheit, pulse of 101, respiration 20, blood pressure 123/55, O2 sat of 100% on room air. HEENT: Showed pupils to be equal, round, reactive to light and accommodating. Extraocular muscles are intact. NECK: Stiff with no JVD or carotid bruit. CARDIOVASCULAR SYSTEM: Showed normal first and second heart sounds with no gallops or murmurs. RESPIRATORY SYSTEM: Showed good air entry on both sides of the lungs with no abnormal breath sounds. GASTROINTESTINAL SYSTEM: Show abdomen to be full, soft, nontender with no organomegaly or rigidity. NEUROLOGIC: Neuro exam shows no focal deficit. MUSCULOSKELETAL SYSTEM: Show no joint swelling or tenderness. DERMATOLOGIC SYSTEM: Show no skin rash. GENITOURINARY SYSTEM: Showing no costovertebral angle tenderness. PERTINENT LABORATORY AND IMAGING STUDIES: The patient had a CT of the head without contrast done that showed no evidence of acute intracranial process or hemorrhage or mass effect. Also the patient had chest x-ray done that showed no evidence of any acute pulmonary process. The patient's CBC shows elevated white count of 11,800 with low hemoglobin of 9.5 and normal hematocrit of 30.4. The patient's CBC differential showed slightly elevated monocyte count of 9.7% with elevated segmented neutrophil of 82.3%. Coagulation studies showing high PT of 16.1 and slightly elevated INR of 1.2. The patient's chemistry showed low sodium of 133 with low potassium of 3.4, normal chloride and rest of chemistry was unremarkable. The patient's urinalysis show positive urine nitrite with moderate urine leukocyte esterase and a high urine WBC of 110 with negative urine test. The patient's cerebrospinal fluid analysis showed clear CSF, which is colorless with CSF WBC of 1 and CSF RBC of 97 with unremarkable or no significant CSF differential analysis. CSF glucose level is 65 with total protein pending and comment is that there is no cell seen. DIAGNOSES: 1. Headache. 2. Stiff neck. 3. Urinary tract infection. 4. Sepsis. PLAN: The patient will be admitted to medical/surgical matute and will continue isolation and respiratory precautions until completely ruled out for meningitis. The patient will be on IV Zosyn 3.375 grams q. 8 hours and will be on Tylenol 650 mg by mouth every 4 hours for fever and headache and the patient will be on IV Zofran 4 mg every 8 hours for nausea and vomiting. The patient will be on IV normal saline at 150 mL an hour. JOB# [id number] OCN/NTS
[2017-11-24] MEDS ORDERED: PERCOCET 5/325 PO ONE (11:00)
--- NOTE | 2017-11-24 16:37 | Consultation ---
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 Denies any direct sick contacts. Denies ear pain, runny nose , cough. Denies abdominal pain, nausea, vomiting and diarrhea. Of note, she has been coming to the ED in the recent past with UTIs due to Escherichia coli back in November 2015 and October 2016. She came to the ED for another episode of UTI in July 2017 and urine culture grew multiple species. In the ED, initial temperature 101.1, heart rate 101, respiration 20, O2 sat monitor, blood pressure 123/55. White count 11.8. Hemoglobin 9.5. Platelets 219. Creatinine 0.6. Sodium 133. Urinalyses show white blood cell 110, moderate leukocyte esterase. CXR neg. CT head neg. CSF wbc 1, glu 65. Microbiology: Blood cultures: 11/23 ngtd CSF cultures: 11/23 ngtd Crypto ag in CSF: neg Respiratory cultures: Current Antimicrobials: Zosyn 11/04 Previous Antimicrobials: Past History Past Medical History: other (neurofibromatosis) Past Surgical History: No surgical history Social history: no significant social history Family history: no significant family history Medications and Allergies Allergies Allergy/AdvReac Type Severity Reaction Status Date / Time No Known Allergies Allergy Verified 10/18/16 17:28 Home Medications Medication Instructions Recorded Confirmed Last Taken Type Docusate Sodium [Colace CAP] 100 mg PO BID PRN #20 capsule 11/01/15 Unknown Rx Cefdinir 300 mg PO BID #20 capsule 06/10/16 Unknown Rx Metoclopramide [Reglan] 10 mg PO QID PRN #30 tablet 10/16/16 Unknown Rx HYDROcodone/APAP 5-325 [[place] 1 each PO Q6HR PRN #8 tablet 12/01/16 Unknown Rx 5/325] Acetaminophen/Codeine [Tylenol 1 tab PO Q6H PRN 3 Days #12 tab 03/16/17 Unknown Rx /Codeine # 3 tab] Clindamycin [Clindamycin CAP] 300 mg PO Q8H 10 Days #30 cap 03/16/17 Unknown Rx Ibuprofen [Motrin 600 MG tab] 600 mg PO Q8H PRN #30 tablet 07/23/17 Unknown Rx Nitrofurantoin Monohyd/M-Cryst 100 mg PO BID #20 capsule 07/23/17 Unknown Rx [Macrobid 100 mg Capsule] Naproxen 500 mg PO Q12H PRN #12 tablet 07/24/17 Unknown Rx Ondansetron [Zofran Odt] 4 mg PO Q6H PRN #12 tab.rapdis 07/24/17 Unknown Rx levoFLOXacin [Levaquin] 750 mg PO QDAY 6 Days #6 tablet 07/24/17 Unknown Rx Active Meds: Active Medications Acetaminophen (Tylenol) 650 mg PO Q4H PRN PRN Reason: Fever >101 Piperacillin Sod/Tazobactam Sod (Zosyn/Ns 3.375gm/50ml) 3.375 gm in 50 mls @ 100 mls/hr IV Q6HR MCKENNA; Protocol Ondansetron HCl (Zofran) 4 mg IV Q8H PRN PRN Reason: Nausea And Vomiting Review of Systems All systems: negative (per HPI rest neg) Physical Examination - Physical Exam Narrative exam: General appearance: Alert in NAD, conversant Eyes: anicteric sclerae, moist conjunctivae; no lid-lag; PERRLA HENT: Atraumatic; oropharynx clear. Neck: Trachea midline; supple, no thyromegaly or lymphadenopathy Lungs: CTA, with normal respiratory effort and no intercostal retractions CV: RRR, no murmurs Abdomen: Soft, non-tender; no masses or hepatosplenomegaly Extremities: No peripheral edema or extremity lymphadenopathy Skin: + multiple subcutaneous nodules Psych: Appropriate affect, alert and oriented to person, place and time. Neuro: alert and oriented x 3. Moving all extermities Lines: No CVL / PICC - Constitutional Vitals: Vital Signs Temp Pulse Resp BP Pulse Ox 99.6 F 101 H 7 L 125/68 99 11/23/17 20:57 11/24/17 02:30 11/24/17 02:30 11/24/17 02:30 11/24/17 02:30 Temperature -Last 24 Hours Temperature 99.6 F Temperature 102.3 F Temperature 101.1 F Results - Labs CBC & Chem 7: 11/23/17 17:54 11/23/17 17:54 Labs: Abnormal lab results 11/23/1718 11/23/17 Range/Units 17:47 17:54 17:54 WBC 11.8 H (4.5-11.0) K/mm3 Hgb 9.5 L (10.1-14.3) gm/dl MCV 72 L (79-97) fl MCH 22 L (28-32) pg RDW 18.4 H (13.2-15.2) % Lymph % (Auto) 7.3 L (13.4-35.0) % [place] % (Auto) 9.7 H (0.0-7.3) % Lymph # 0.9 L (1.2-5.4) K/mm3 [place] # 1.1 H (0.0-0.8) K/mm3 Seg Neutrophils % 82.3 H (40.0-70.0) % Seg Neutrophils # 9.7 H (1.8-7.7) K/mm3 PT 16.1 H (12.2-14.9) Sec. INR 1.24 H (0.87-1.13) Sodium (137-145) mmol/L Potassium (3.6-5.0) mmol/L Carbon Dioxide (22-30) mmol/L Creatinine (0.7-1.2) mg/dL Glucose (65-100) mg/dL ALT (7-56) units/L Urine WBC (Auto) 110.0 H (0.0-6.0) /HPF 11/23/17 11/23/17 Range/Units 17:54 21:17 WBC (4.5-11.0) K/mm3 Hgb (10.1-14.3) gm/dl MCV (79-97) fl MCH (28-32) pg RDW (13.2-15.2) % Lymph % (Auto) (13.4-35.0) % [place] % (Auto) (0.0-7.3) % Lymph # (1.2-5.4) K/mm3 [place] # (0.0-0.8) K/mm3 Seg Neutrophils % (40.0-70.0) % Seg Neutrophils # (1.8-7.7) K/mm3 PT 17.5 H (12.2-14.9) Sec. INR 1.38 H (0.87-1.13) Sodium 133 L (137-145) mmol/L Potassium 3.4 L (3.6-5.0) mmol/L Carbon Dioxide 20 L (22-30) mmol/L Creatinine 0.6 L (0.7-1.2) mg/dL Glucose 101 H (65-100) mg/dL ALT 6 L (7-56) units/L Urine WBC (Auto) (0.0-6.0) /HPF Assessment and Plan Assessment: 1) Sepsis: Present on admission, manifested by fever, tachycardia, leukocytosis. Etiology most likely UTI, should r/o influenza 2) Acute UTI/ recurrent 3) Neck stiffness and headache ? influenza ? migraine. No evidence of CSF infection 4) Neurofibromatosis 5) Previous UTIs - due to Escherichia coli back in November 2015 and October 2016. She came to the ED for another episode of UTI in July 2017 and urine culture grew multiple species. Plan: -follow-up blood cultures, urine culture -influenza antigen -stop zosyn -start ceftriaxone -if headache is not better consider neurology consult/brain MRI Thank you for your consultation, will follow up with you. Tayler Miller MD Infectious Diseases Specialist [facility] ([facility] M [phone] O [phone]
[2017-11-24] MEDS ORDERED: ZOSYN/NS 3.375GM/50ML 3.375 GM/50 ML BAG IV SCH (18:00)
[2017-11-24] MEDS: ROCEPHIN/NS 2 GM/100 ML 2 GM/100 ML BAG IV SCH (18:34)
[2017-11-24] MEDS: TYLENOL PO PRN (19:56)
[2017-11-24] MEDS: ZOFRAN IV PRN (19:56)
[2017-11-24] MEDS: PERCOCET 5/325 PO PRN (20:27)
[2017-11-25] MEDS: TYLENOL PO PRN (06:01)
--- NOTE | 2017-11-25 09:32 | Ultrasound Report ---
ULTRASOUND ABDOMEN COMPLETE: TECHNIQUE: Transabdominal ultrasound with color Doppler interrogation. HISTORY: Acute UTI, evaluate for pyelonephritis, stones. COMPARISON: none. FINDINGS: LIVER: Normal. BILIARY SYSTEM: Normal. PANCREAS: Normal. SPLEEN: Normal. KIDNEYS: Normal. AORTA/IVC: Normal. ASCITES: None. IMPRESSION: Unremarkable exam. No evidence for pyelonephritis on ultrasound. If further evaluation for pyelonephritis is needed, CT abdomen pelvis with IV contrast is recommended.
[2017-11-25] MEDS: ROCEPHIN/NS 2 GM/100 ML 2 GM/100 ML BAG IV SCH (10:08)
[2017-11-25] MEDS: PERCOCET 5/325 PO PRN ×3 (10:13→22:29)
--- NOTE | 2017-11-25 12:20 | Progress Note ---
Assessment and Plan Assessment: 1) Sepsis:Improved, Fever continues. Etiology most likely UTI, should r/o influenza - BC- ngtd -CSF- negative -CSF Cryptoccal Antigen - negative Urine culture - GNR 2) Acute UTI/ recurrent 3) Neck stiffness and headache ? influenza ? migraine. No evidence of CSF infection 4) Neurofibromatosis 5) Previous UTIs - due to Escherichia coli back in November 2015 and October 2016. She came to the ED for another episode of UTI in July 2017 and urine culture grew multiple species. Plan: -f/u on influenza test -start tamiflu -continue ceftriaxone, D2 -f/u urine cx which growing GNRs -if fever persists will get brain MRI+/- neuro consult Subjective Date of service: 11/25/17 Interval history: Patient was sitting up in bed watching television. Patient stated that her headache was better today, on a pain scale of 1-10, patient stated her headache was a 3. Blood cultures: 11/23 ngtd CSF cultures: 11/23 ngtd Crypto ag in CSF: neg Respiratory cultures: Current Antimicrobials: Ceftriaxone, D2 Previous Antimicrobials: Zosyn 11/04 Objective - Exam Narrative Exam: Narrative exam: General appearance: Alert in NAD, conversant Eyes: anicteric sclerae, moist conjunctivae; no lid-lag; PERRLA HENT: Atraumatic; oropharynx clear. Neck: Trachea midline; supple, no thyromegaly or lymphadenopathy Lungs: CTA, with normal respiratory effort and no intercostal retractions CV: RRR, no murmurs Abdomen: Soft, non-tender; no masses or hepatosplenomegaly Extremities: No peripheral edema or extremity lymphadenopathy Skin: + multiple subcutaneous nodules Psych: Appropriate affect, alert and oriented to person, place and time. Neuro: alert and oriented x 3. Moving all extermities Lines: No CVL / PICC - Constitutional Vitals: Vital Signs Temp Pulse Resp BP Pulse Ox 101.7 F H 97 H 16 104/61 100 11/25/17 05:36 11/25/17 05:36 11/25/17 05:36 11/25/17 05:36 11/25/17 05:36 Temperature -Last 24 Hours Temperature 101.7 F Temperature 98.8 F Temperature 97.9 F - Labs CBC & Chem 7: 11/23/17 17:54 11/23/17 17:54
[2017-11-25] MEDS ORDERED: TAMIFLU PO STA (14:53)
--- NOTE | 2017-11-25 23:36 | Progress Note ---
Assessment and Plan Assessment and plan: 32F with fever, Neck stiffness/pain and UTI Sepsis continue abx, LP cell count was negative fup flu screening continue droplet isolation sp tamiflu ID on board UTI gram neg rods on urine cx continue abx History Interval history: continues to have fever and neck pain/stiffness fever curve is trending down no vomiting, no cough, no flank pain Hospitalist Physical - Constitutional Vitals: Temp Pulse Resp BP Pulse Ox 100.0 F H 78 20 104/71 100 11/25/17 16:50 11/25/17 16:50 11/25/17 22:29 11/25/17 16:50 11/25/17 16:50 General appearance: Present: no acute distress - EENT Eyes: Present: PERRL ENT: hearing intact - Neck Neck: Present: supple - Respiratory Respiratory effort: normal Respiratory: bilateral: CTA - Cardiovascular Rhythm: regular Heart Sounds: Present: S1 & S2 - Extremities Extremities: no ischemia Peripheral Pulses: within normal limits - Abdominal General gastrointestinal: soft, non-tender - Integumentary Integumentary: Present: clear, warm - Psychiatric Psychiatric: appropriate mood/affect, intact judgment & insight - Neurologic Neurologic: CNII-XII intact, no focal deficits, moves all extremities Results - Labs CBC & Chem 7: 11/23/17 17:54 11/23/17 17:54 Labs: Laboratory Last Values WBC 11.8 K/mm3 (4.5-11.0) H 11/23/17 17:54 RBC 4.24 M/mm3 (3.65-5.03) 11/23/17 17:54 Hgb 9.5 gm/dl (10.1-14.3) L 11/23/17 17:54 Hct 30.4 % (30.3-42.9) 11/23/17 17:54 MCV 72 fl (79-97) L 11/23/17 17:54 MCH 22 pg (28-32) L 11/23/17 17:54 MCHC 31 % (30-34) 11/23/17 17:54 RDW 18.4 % (13.2-15.2) H 11/23/17 17:54 Plt Count 219 K/mm3 (140-440) 11/23/17 17:54 Lymph % (Auto) 7.3 % (13.4-35.0) L 11/23/17 17:54 [place] % (Auto) 9.7 % (0.0-7.3) H 11/23/17 17:54 Eos % (Auto) 0.1 % (0.0-4.3) 11/23/17 17:54 Baso % (Auto) 0.6 % (0.0-1.8) 11/23/17 17:54 Lymph # 0.9 K/mm3 (1.2-5.4) L 11/23/17 17:54 [place] # 1.1 K/mm3 (0.0-0.8) H 11/23/17 17:54 Eos # 0.0 K/mm3 (0.0-0.4) 11/23/17 17:54 Baso # 0.1 K/mm3 (0.0-0.1) 11/23/17 17:54 Seg Neutrophils % 82.3 % (40.0-70.0) H 11/23/17 17:54 Seg Neutrophils # 9.7 K/mm3 (1.8-7.7) H 11/23/17 17:54 PT 17.5 Sec. (12.2-14.9) H 11/23/17 21:17 INR 1.38 (0.87-1.13) H 11/23/17 21:17 APTT 34.1 Sec. (24.2-36.6) 11/23/17 21:17 VBG pH 7.377 (7.320-7.420) 11/23/17 17:54 Sodium 133 mmol/L (137-145) L 11/23/17 17:54 Potassium 3.4 mmol/L (3.6-5.0) L 11/23/17 17:54 Chloride 100.8 mmol/L (98-107) 11/23/17 17:54 Carbon Dioxide 20 mmol/L (22-30) L 11/23/17 17:54 Anion Gap 16 mmol/L 11/23/17 17:54 BUN 14 mg/dL (7-17) 11/23/17 17:54 Creatinine 0.6 mg/dL (0.7-1.2) L 11/23/17 17:54 Estimated GFR > 60 ml/min 11/23/17 17:54 BUN/Creatinine Ratio 23 % 11/23/17 17:54 Glucose 101 mg/dL (65-100) H 11/23/17 17:54 Lactic Acid 0.80 mmol/L (0.7-2.0) 11/23/17 21:17 Calcium 8.9 mg/dL (8.4-10.2) 11/23/17 17:54 Total Bilirubin 0.40 mg/dL (0.1-1.2) 11/23/17 17:54 AST 14 units/L (5-40) 11/23/17 17:54 ALT 6 units/L (7-56) L 11/23/17 17:54 Alkaline Phosphatase 78 units/L (35-129) 11/23/17 17:54 Total Protein 8.2 g/dL (6.3-8.2) 11/23/17 17:54 Albumin 4.0 g/dL (3.9-5) 11/23/17 17:54 Albumin/Globulin Ratio 1.0 % 11/23/17 17:54 Urine Color Yellow (Yellow) 11/23/17 17:47 Urine Turbidity Slightly-cloudy (Clear) 11/23/17 17:47 Urine pH 6.0 (5.0-7.0) 11/23/17 17:47 Ur Specific [place] 1.014 (1.003-1.030) 11/23/17 17:47 Urine Protein 30 mg/dl mg/dL (Negative) 11/23/17 17:47 Urine Glucose (UA) Neg mg/dL (Negative) 11/23/17 17:47 Urine Ketones Neg mg/dL (Negative) 11/23/17 17:47 Urine Blood Mod (Negative) 11/23/17 17:47 Urine Nitrite Pos (Negative) 11/23/17 17:47 Urine Bilirubin Neg (Negative) 11/23/17 17:47 Urine Urobilinogen 4.0 mg/dL (<2.0) 11/23/17 17:47 Ur Leukocyte Esterase Mod (Negative) 11/23/17 17:47 Urine WBC (Auto) 110.0 /HPF (0.0-6.0) H 11/23/17 17:47 Urine RBC (Auto) 7.0 /HPF (0.0-6.0) 11/23/17 17:47 Urine Yeast ([place]) Few /HPF 11/23/17 17:47 Urine HCG, Qual Negative (Negative) 11/23/17 17:47 CSF Appearance Clear 11/23/17 20:47 CSF Color Colorless 11/23/17 20:47 CSF WBC 1 /mm3 (1-10) 11/23/17 20:47 CSF RBC 97 /mm3 (0-0) 11/23/17 20:47 CSF Seg Neutrophils 0 % (0-6) 11/23/17 20:47 CSF Lymphocytes % 0 % (40-80) 11/23/17 20:47 CSF Reactive Lymphs 0 % 11/23/17 20:47 CSF Monocytes % 0 % (15-45) 11/23/17 20:47 CSF Eosinophils % 0 % 11/23/17 20:47 CSF Basophils 0 % 11/23/17 20:47 CSF Comment No cells seen 11/23/17 20:47 CSF Pathologist Review C 11/23/17 20:47 CSF Glucose 65 mg/dL 11/23/17 20:47 CSF Total Protein 20.72 mg/dL 11/23/17 20:47
[2017-11-26] MEDS: PERCOCET 5/325 PO PRN ×2 (04:21→16:00)
--- NOTE | 2017-11-26 08:59 | Progress Note ---
Assessment and Plan Assessment: 1) Sepsis:Improved, Persistent Fever. Etiology most likely UTI, should r/o influenza - BC- ngtd -CSF- negative -CSF Cryptoccal Antigen - negative Urine culture - GNR -Influenza Ag negative 2) Acute UTI/ recurrent 3) Neck stiffness and headache ? influenza ? migraine. No evidence of CSF infection -11/25- Head CT- No evidence of an acute intracranial process, intracranial hemorrhage or mass effect. 4) Neurofibromatosis 5) Previous UTIs - due to Escherichia coli back in November 2015 and October 2016. She came to the ED for another episode of UTI in July 2017 and urine culture grew multiple species. Plan: -continue tamiflu, D2 despite negative Influenza Ag because has close to 50% false negative -continue ceftriaxone, D3 -obtain brain MRI today -repeat blood cx -obtain CRP, procal, CHRISTA, ANCA,C3/C4 -if initial w/o negative consult neuro and order CT chest, abd, pelvis Subjective Date of service: 11/26/17 Interval history: Patient was sitting up in bed. Family members at bedside. patient stated that she was still having headaches. Blood cultures: 11/23 ngtd CSF cultures: 11/23 ngtd Crypto ag in CSF: neg Respiratory cultures: Current Antimicrobials: Ceftriaxone, D3 Previous Antimicrobials: Zosyn 11/04 Objective - Exam Narrative Exam: Narrative exam: General appearance: Alert in NAD, conversant Eyes: anicteric sclerae, moist conjunctivae; no lid-lag; PERRLA HENT: Atraumatic; oropharynx clear. Neck: Trachea midline; supple, no thyromegaly or lymphadenopathy Lungs: CTA, with normal respiratory effort and no intercostal retractions CV: RRR, no murmurs Abdomen: Soft, non-tender; no masses or hepatosplenomegaly Extremities: No peripheral edema or extremity lymphadenopathy Skin: + multiple subcutaneous nodules Psych: Appropriate affect, alert and oriented to person, place and time. Neuro: alert and oriented x 3. Moving all extermities Lines: No CVL / PICC - Constitutional Vitals: Vital Signs Temp Pulse Resp BP Pulse Ox 99.9 F H 71 20 101/60 100 11/26/17 05:05 11/26/17 05:05 11/26/17 05:21 11/26/17 05:05 11/26/17 05:05 Temperature -Last 24 Hours Temperature 99.9 F Temperature 101.0 F Temperature 100.0 F Temperature 99.1 F - Labs CBC & Chem 7: 11/26/17 09:38 11/23/17 17:54
[2017-11-26] MEDS: ROCEPHIN/NS 2 GM/100 ML 2 GM/100 ML BAG IV SCH (09:17)
[2017-11-26 09:56] LABS: Basophils # (Auto) 0.1 K/mm3 (0.0-0.1); Basophils % (Auto) 0.9 % (0.0-1.8); Eosinophils # (Auto) 0.1 K/mm3 (0.0-0.4); Eosinophils % (Auto) 1.3 % (0.0-4.3); Hematocrit 31.8 % (30.3-42.9); Hemoglobin 10.2 gm/dl (10.1-14.3); Lymphocytes # (Auto) 1.7 K/mm3 (1.2-5.4); Lymphocytes % (Auto) 17.2 % (13.4-35.0); Mean Corpuscular HGB Conc 32 % (30-34); Mean Corpuscular Volume 71 fl (79-97); Monocytes # (Auto) 1.5 K/mm3 (0.0-0.8); Monocytes % (Auto) 15.3 % (0.0-7.3); Platelet Count 223 K/mm3 (140-440); Red Blood Count 4.48 M/mm3 (3.65-5.03); Red Cell Distribution Width 18.5 % (13.2-15.2)
[2017-11-26 09:58] LABS: Mean Corpuscular Hemoglobin 23 pg (28-32)
[2017-11-26] MEDS: MORPHINE IV PRN ×3 (12:43→21:53)
--- NOTE | 2017-11-26 15:41 | Progress Note ---
Assessment and Plan Assessment and plan: Patient is a 32 yo woman with a history of Neurofibromatosis who pw fever, Neck stiffness/pain and found to have UTI * BC- ngtd * CSF- negative * CSF Cryptoccal Antigen - negative * Urine culture - E.coli, [id number] * Influenza Ag negative * Abd u/s negative for pyelo Sepsis UTI continue abx, LP cell count was negative fup flu screening continue droplet isolation sp tamiflu ID is following UTI gram neg rods on urine cx continue abx Neck stiff and headaches, with negative LP ID is following and recommended MRI brain History Interval history: Patient was seen and examined. Follow-up on current diagnosis of headache, improved this morning. Overnight eventful with fevers. Patient denies any chest pain, shortness breath, nausea/vomiting or severe headaches. Imaging, nursing note, chart, labs and old chart reviewed. Discussed with patient. Sister and mother at bedside. Hospitalist Physical - Physical exam Narrative exam: GEN: WDWN, NAD, Awake, Alert, Orientated x3 HEENT: NCAT, EOMI, PERRL, OP Clear NECK: supple, no adenopathy, no thyromegaly, no JVD CVS/HEART: RRR, normal S1S2, pulses present bilaterally CHEST/LUNGS: CTA B, Symmetrical chest expansion, good air entry bilaterally GI/Abdomen: soft, NTND, good bowel sounds, no guarding or rebound /Bladder: no suprapubic tenderness, no CVA or paraspinal tenderness EXT/Skin: no c/c/e, no obvious rash MSK: FROM x 4 Neuro: CN 2-12 grossly intact, no new focal deficits Psych: calm - Constitutional Vitals: Temp Pulse Resp BP Pulse Ox 99.3 F 80 20 114/67 99 11/26/17 12:00 11/26/17 12:00 11/26/17 12:43 11/26/17 12:00 11/26/17 12:00 General appearance: Present: no acute distress Results - Labs CBC & Chem 7: 11/26/17 09:38 11/23/17 17:54 Labs: Laboratory Last Values WBC 9.6 K/mm3 (4.5-11.0) 11/26/17 09:38 RBC 4.48 M/mm3 (3.65-5.03) 11/26/17 09:38 Hgb 10.2 gm/dl (10.1-14.3) 11/26/17 09:38 Hct 31.8 % (30.3-42.9) 11/26/17 09:38 MCV 71 fl (79-97) L 11/26/17 09:38 MCH 23 pg (28-32) L 11/26/17 09:38 MCHC 32 % (30-34) 11/26/17 09:38 RDW 18.5 % (13.2-15.2) H 11/26/17 09:38 Plt Count 223 K/mm3 (140-440) 11/26/17 09:38 Lymph % (Auto) 17.2 % (13.4-35.0) 11/26/17 09:38 [place] % (Auto) 15.3 % (0.0-7.3) H 11/26/17 09:38 Eos % (Auto) 1.3 % (0.0-4.3) 11/26/17 09:38 Baso % (Auto) 0.9 % (0.0-1.8) 11/26/17 09:38 Lymph # 1.7 K/mm3 (1.2-5.4) 11/26/17 09:38 [place] # 1.5 K/mm3 (0.0-0.8) H 11/26/17 09:38 Eos # 0.1 K/mm3 (0.0-0.4) 11/26/17 09:38 Baso # 0.1 K/mm3 (0.0-0.1) 11/26/17 09:38 Seg Neutrophils % 65.3 % (40.0-70.0) 11/26/17 09:38 Seg Neutrophils # 6.3 K/mm3 (1.8-7.7) 11/26/17 09:38 PT 17.5 Sec. (12.2-14.9) H 11/23/17 21:17 INR 1.38 (0.87-1.13) H 11/23/17 21:17 APTT 34.1 Sec. (24.2-36.6) 11/23/17 21:17 VBG pH 7.377 (7.320-7.420) 11/23/17 17:54 Sodium 133 mmol/L (137-145) L 11/23/17 17:54 Potassium 3.4 mmol/L (3.6-5.0) L 11/23/17 17:54 Chloride 100.8 mmol/L (98-107) 11/23/17 17:54 Carbon Dioxide 20 mmol/L (22-30) L 11/23/17 17:54 Anion Gap 16 mmol/L 11/23/17 17:54 BUN 14 mg/dL (7-17) 11/23/17 17:54 Creatinine 0.6 mg/dL (0.7-1.2) L 11/23/17 17:54 Estimated GFR > 60 ml/min 11/23/17 17:54 BUN/Creatinine Ratio 23 % 11/23/17 17:54 Glucose 101 mg/dL (65-100) H 11/23/17 17:54 Lactic Acid 0.80 mmol/L (0.7-2.0) 11/23/17 21:17 Calcium 8.9 mg/dL (8.4-10.2) 11/23/17 17:54 Total Bilirubin 0.40 mg/dL (0.1-1.2) 11/23/17 17:54 AST 14 units/L (5-40) 11/23/17 17:54 ALT 6 units/L (7-56) L 11/23/17 17:54 Alkaline Phosphatase 78 units/L (35-129) 11/23/17 17:54 Total Protein 8.2 g/dL (6.3-8.2) 11/23/17 17:54 Albumin 4.0 g/dL (3.9-5) 11/23/17 17:54 Albumin/Globulin Ratio 1.0 % 11/23/17 17:54 Urine Color Yellow (Yellow) 11/23/17 17:47 Urine Turbidity Slightly-cloudy (Clear) 11/23/17 17:47 Urine pH 6.0 (5.0-7.0) 11/23/17 17:47 Ur Specific [place] 1.014 (1.003-1.030) 11/23/17 17:47 Urine Protein 30 mg/dl mg/dL (Negative) 11/23/17 17:47 Urine Glucose (UA) Neg mg/dL (Negative) 11/23/17 17:47 Urine Ketones Neg mg/dL (Negative) 11/23/17 17:47 Urine Blood Mod (Negative) 11/23/17 17:47 Urine Nitrite Pos (Negative) 11/23/17 17:47 Urine Bilirubin Neg (Negative) 11/23/17 17:47 Urine Urobilinogen 4.0 mg/dL (<2.0) 11/23/17 17:47 Ur Leukocyte Esterase Mod (Negative) 11/23/17 17:47 Urine WBC (Auto) 110.0 /HPF (0.0-6.0) H 11/23/17 17:47 Urine RBC (Auto) 7.0 /HPF (0.0-6.0) 11/23/17 17:47 Urine Yeast (Budding) Few /HPF 11/23/17 17:47 Urine HCG, Qual Negative (Negative) 11/23/17 17:47 CSF Appearance Clear 11/23/17 20:47 CSF Color Colorless 11/23/17 20:47 CSF WBC 1 /mm3 (1-10) 11/23/17 20:47 CSF RBC 97 /mm3 (0-0) 11/23/17 20:47 CSF Seg Neutrophils 0 % (0-6) 11/23/17 20:47 CSF Lymphocytes % 0 % (40-80) 11/23/17 20:47 CSF Reactive Lymphs 0 % 11/23/17 20:47 CSF Monocytes % 0 % (15-45) 11/23/17 20:47 CSF Eosinophils % 0 % 11/23/17 20:47 CSF Basophils 0 % 11/23/17 20:47 CSF Comment No cells seen 11/23/17 20:47 CSF Pathologist Review C 11/23/17 20:47 CSF Glucose 65 mg/dL 11/23/17 20:47 CSF Total Protein 20.72 mg/dL 11/23/17 20:47 CSF VDRL Nonreactive (Nonreactive) 11/23/17 20:47 Influenza A (Rapid) Negative (Negative) 11/25/17 12:10 Influenza B (Rapid) Negative (Negative) 11/25/17 12:10
[2017-11-26] MEDS: ZOFRAN IV PRN (21:53)
--- NOTE | 2017-11-27 07:44 | Progress Note ---
Assessment and Plan Assessment and plan: Patient is a 32 yo woman with a history of Neurofibromatosis who pw fever, Neck stiffness/pain and found to have UTI * BC- ngtd * CSF- negative * CSF Cryptoccal Antigen - negative * Urine culture - E.coli, [id number] * Influenza Ag negative * Abd u/s negative for pyelo Sepsis UTI continue abx, LP was negative Influenza screen negative, sp tamiflu ID is following E. coli UTI continue abx Add Levaquin based upon sensitivities Neck stiff and headaches, with negative LP ID is following and recommended MRI brain and it is pending Hypokalemia re-check bmp DVT prophylaxis add sq heparin Disposition: continue inpatient care, BMP and mri brain pending, still with low grade temp History Interval history: Patient was seen and examined. Follow-up on current diagnosis of headache, improved this morning. Overnight uneventful, max Temp 99.9F. Patient denies any chest pain, shortness breath, nausea/vomiting or severe headaches. Imaging, nursing note, chart, labs and old chart reviewed. Discussed with patient. Hospitalist Physical - Physical exam Narrative exam: GEN: WDWN, NAD, Awake, Alert, Orientated x3 HEENT: NCAT, EOMI, PERRL, OP Clear NECK: supple, no adenopathy, no thyromegaly, no JVD CVS/HEART: RRR, normal S1S2, pulses present bilaterally CHEST/LUNGS: CTA B, Symmetrical chest expansion, good air entry bilaterally GI/Abdomen: soft, NTND, good bowel sounds, no guarding or rebound /Bladder: no suprapubic tenderness, no CVA or paraspinal tenderness EXT/Skin: no c/c/e, no obvious rash MSK: FROM x 4 Neuro: CN 2-12 grossly intact, no new focal deficits Psych: calm - Constitutional Vitals: Temp Pulse Resp BP Pulse Ox 99.2 F 78 12 109/75 100 11/27/17 05:19 11/27/17 05:19 11/27/17 05:19 11/27/17 05:19 11/27/17 05:19 General appearance: Present: no acute distress Results - Labs CBC & Chem 7: 11/26/17 09:38 11/23/17 17:54 Labs: Laboratory Last Values WBC 9.6 K/mm3 (4.5-11.0) 11/26/17 09:38 RBC 4.48 M/mm3 (3.65-5.03) 11/26/17 09:38 Hgb 10.2 gm/dl (10.1-14.3) 11/26/17 09:38 Hct 31.8 % (30.3-42.9) 11/26/17 09:38 MCV 71 fl (79-97) L 11/26/17 09:38 MCH 23 pg (28-32) L 11/26/17 09:38 MCHC 32 % (30-34) 11/26/17 09:38 RDW 18.5 % (13.2-15.2) H 11/26/17 09:38 Plt Count 223 K/mm3 (140-440) 11/26/17 09:38 Lymph % (Auto) 17.2 % (13.4-35.0) 11/26/17 09:38 [place] % (Auto) 15.3 % (0.0-7.3) H 11/26/17 09:38 Eos % (Auto) 1.3 % (0.0-4.3) 11/26/17 09:38 Baso % (Auto) 0.9 % (0.0-1.8) 11/26/17 09:38 Lymph # 1.7 K/mm3 (1.2-5.4) 11/26/17 09:38 [place] # 1.5 K/mm3 (0.0-0.8) H 11/26/17 09:38 Eos # 0.1 K/mm3 (0.0-0.4) 11/26/17 09:38 Baso # 0.1 K/mm3 (0.0-0.1) 11/26/17 09:38 Seg Neutrophils % 65.3 % (40.0-70.0) 11/26/17 09:38 Seg Neutrophils # 6.3 K/mm3 (1.8-7.7) 11/26/17 09:38 PT 17.5 Sec. (12.2-14.9) H 11/23/17 21:17 INR 1.38 (0.87-1.13) H 11/23/17 21:17 APTT 34.1 Sec. (24.2-36.6) 11/23/17 21:17 VBG pH 7.377 (7.320-7.420) 11/23/17 17:54 Sodium 133 mmol/L (137-145) L 11/23/17 17:54 Potassium 3.4 mmol/L (3.6-5.0) L 11/23/17 17:54 Chloride 100.8 mmol/L (98-107) 11/23/17 17:54 Carbon Dioxide 20 mmol/L (22-30) L 11/23/17 17:54 Anion Gap 16 mmol/L 11/23/17 17:54 BUN 14 mg/dL (7-17) 11/23/17 17:54 Creatinine 0.6 mg/dL (0.7-1.2) L 11/23/17 17:54 Estimated GFR > 60 ml/min 11/23/17 17:54 BUN/Creatinine Ratio 23 % 11/23/17 17:54 Glucose 101 mg/dL (65-100) H 11/23/17 17:54 Lactic Acid 0.80 mmol/L (0.7-2.0) 11/23/17 21:17 Calcium 8.9 mg/dL (8.4-10.2) 11/23/17 17:54 Total Bilirubin 0.40 mg/dL (0.1-1.2) 11/23/17 17:54 AST 14 units/L (5-40) 11/23/17 17:54 ALT 6 units/L (7-56) L 11/23/17 17:54 Alkaline Phosphatase 78 units/L (35-129) 11/23/17 17:54 C-Reactive Protein 17.30 mg/dL (0.00-1.30) H 11/26/17 14:43 Total Protein 8.2 g/dL (6.3-8.2) 11/23/17 17:54 Albumin 4.0 g/dL (3.9-5) 11/23/17 17:54 Albumin/Globulin Ratio 1.0 % 11/23/17 17:54 Urine Color Yellow (Yellow) 11/23/17 17:47 Urine Turbidity Slightly-cloudy (Clear) 11/23/17 17:47 Urine pH 6.0 (5.0-7.0) 11/23/17 17:47 Ur Specific [place] 1.014 (1.003-1.030) 11/23/17 17:47 Urine Protein 30 mg/dl mg/dL (Negative) 11/23/17 17:47 Urine Glucose (UA) Neg mg/dL (Negative) 11/23/17 17:47 Urine Ketones Neg mg/dL (Negative) 11/23/17 17:47 Urine Blood Mod (Negative) 11/23/17 17:47 Urine Nitrite Pos (Negative) 11/23/17 17:47 Urine Bilirubin Neg (Negative) 11/23/17 17:47 Urine Urobilinogen 4.0 mg/dL (<2.0) 11/23/17 17:47 Ur Leukocyte Esterase Mod (Negative) 11/23/17 17:47 Urine WBC (Auto) 110.0 /HPF (0.0-6.0) H 11/23/17 17:47 Urine RBC (Auto) 7.0 /HPF (0.0-6.0) 11/23/17 17:47 Urine Yeast (Budding) Few /HPF 11/23/17 17:47 Urine HCG, Qual Negative (Negative) 11/23/17 17:47 CSF Appearance Clear 11/23/17 20:47 CSF Color Colorless 11/23/17 20:47 CSF WBC 1 /mm3 (1-10) 11/23/17 20:47 CSF RBC 97 /mm3 (0-0) 11/23/17 20:47 CSF Seg Neutrophils 0 % (0-6) 11/23/17 20:47 CSF Lymphocytes % 0 % (40-80) 11/23/17 20:47 CSF Reactive Lymphs 0 % 11/23/17 20:47 CSF Monocytes % 0 % (15-45) 11/23/17 20:47 CSF Eosinophils % 0 % 11/23/17 20:47 CSF Basophils 0 % 11/23/17 20:47 CSF Comment No cells seen 11/23/17 20:47 CSF Pathologist Review C 11/23/17 20:47 CSF Glucose 65 mg/dL 11/23/17 20:47 CSF Total Protein 20.72 mg/dL 11/23/17 20:47 CSF VDRL Nonreactive (Nonreactive) 11/23/17 20:47 Influenza A (Rapid) Negative (Negative) 11/25/17 12:10 Influenza B (Rapid) Negative (Negative) 11/25/17 12:10
--- NOTE | 2017-11-27 08:53 | Progress Note ---
Assessment and Plan Assessment: 1) Sepsis:Improved, Persistent Fever. Etiology most likely UTI, should r/o influenza - BC- ngtd -CSF- negative -CSF Cryptoccal Antigen - negative Urine culture - GNR -Influenza Ag negative -CRP- 17.30 2) Acute UTI/ recurrent -11/25 Ultrasound- Unremarkable exam. No evidence for pyelonephritis on ultrasound 3) Neck stiffness and headache ? influenza ? migraine. No evidence of CSF infection -11/25- Head CT- No evidence of an acute intracranial process, intracranial hemorrhage or mass effect. - 11/26 MRI - Nonspecific white matter changes. Otherwise unremarkable 4) Neurofibromatosis 5) Previous UTIs - due to Escherichia coli back in November 2015 and October 2016. She came to the ED for another episode of UTI in July 2017 and urine culture grew multiple species. Plan: -continue tamiflu,ending 11/28/17. -stop ceftriaxone -f/u isaías staff climate scientist for results of CHRISTA, ANCC, C3, C4 -patient was advised that if her headaches and fever returned to come back to the hospital ID is signing off - Subjective Date of service: 11/27/17 Interval history: Patient was sitting up in bed. Patient stated that her headache was much better today and that she was ready to go home. Blood cultures: 11/23 ngtd CSF cultures: 11/23 ngtd Crypto ag in CSF: neg Respiratory cultures: Current Antimicrobials: Previous Antimicrobials: Zosyn Ceftriaxone Objective - Exam Narrative Exam: Narrative exam: General appearance: Alert in NAD, conversant Eyes: anicteric sclerae, moist conjunctivae; no lid-lag; PERRLA HENT: Atraumatic; oropharynx clear. Neck: Trachea midline; supple, no thyromegaly or lymphadenopathy Lungs: CTA, with normal respiratory effort and no intercostal retractions CV: RRR, no murmurs Abdomen: Soft, non-tender; no masses or hepatosplenomegaly Extremities: No peripheral edema or extremity lymphadenopathy Skin: + multiple subcutaneous nodules Psych: Appropriate affect, alert and oriented to person, place and time. Neuro: alert and oriented x 3. Moving all extermities Lines: No CVL / PICC - Constitutional Vitals: Vital Signs Temp Pulse Resp BP Pulse Ox 99.2 F 78 12 109/75 100 11/27/17 05:19 11/27/17 05:19 11/27/17 05:19 11/27/17 05:19 11/27/17 05:19 Temperature -Last 24 Hours Temperature 99.2 F Temperature 99.9 F Temperature 99.1 F Temperature 99.3 F - Labs CBC & Chem 7: 11/26/17 09:38 11/27/17 08:25 Labs: Abnormal lab results 11/26/17 11/26/17 Range/Units 09:38 14:43 MCV 71 L (79-97) fl MCH 23 L (28-32) pg RDW 18.5 H (13.2-15.2) % [place] % (Auto) 15.3 H (0.0-7.3) % [place] # 1.5 H (0.0-0.8) K/mm3 C-Reactive Protein 17.30 H (0.00-1.30) mg/dL
[2017-11-27 09:18] LABS: BUN/Creatinine Ratio 16; Blood Urea Nitrogen 8 mg/dL (7-17); Calcium 8.7 mg/dL (8.4-10.2); Hemolysis Index 5
[2017-11-27] MEDS: ROCEPHIN/NS 2 GM/100 ML 2 GM/100 ML BAG IV SCH (09:56)
[2017-11-27] MEDS ORDERED: LEVAQUIN PO SCH (10:00)
[2017-11-27] MEDS ORDERED: HEPARIN SUB-Q SCH (10:00)
--- NOTE | 2017-11-27 11:52 | Magnetic Resonance Report ---
MRI OF THE BRAIN WITHOUT CONTRAST: HISTORY: Persistent headaches, fever PROCEDURE: Multiplanar, multisequence MR imaging of the brain without IV contrast was performed. FINDINGS: Mild nonspecific T2 signal abnormalities are identified in the periventricular white matter. The brain parenchyma demonstrates normal signal on the remaining sequences. No evidence for acute ischemia, hemorrhage or mass. No chronic infarct or extra-axial fluid collection. The midline structures are central. The basal cisterns are patent. Normal ventricular size. The orbital cavities and sella turcica demonstrate no abnormality. The visualized paranasal sinuses and mastoid air cells are well aerated. IMPRESSION: Nonspecific chronic white matter changes. Otherwise, unremarkable MRI of the brain. No acute process is noted.
[2017-11-27] MEDS: PERCOCET 5/325 PO PRN (13:34)
--- NOTE | 2017-11-27 15:49 | Discharge Summary ---
Providers - Providers Date of Admission: 11/24/17 00:06 Date of discharge: 11/27/17 Attending physician: MARI COE 11/24/17 11:49 Consult to Physician [CONS] Routine Comment: Consulting Provider: TYLER MATAMOROS Physician Instructions: Reason For Exam: fever, neck stiffness Primary care physician: RADIOLOGY ORDERLY Hospitalization Condition: Stable Hospital course: Patient is a 32 yo woman with a history of Neurofibromatosis who pw fever, Neck stiffness/pain and found to have UTI. Patient is asymptomatic. * BC- ngtd * CSF- negative * CSF Cryptoccal Antigen - negative * Urine culture - E.coli, [id number] * Influenza Ag negative * Abd u/s negative for pyelo Sepsis UTI continue abx, LP was negative Influenza screen negative, sp tamiflu ID is following E. coli UTI continue abx Add Levaquin based upon sensitivities Neck stiff and headaches, with negative LP ID is following and recommended MRI brain negative for acute findings Hypokalemia re-check bmp DVT prophylaxis add sq heparin Disposition: DC-01 TO HOME OR SELFCARE Time spent for discharge: 34 minutes Core Measure Documentation - Palliative Care Palliative Care/ Comfort Measures: Not Applicable - Core Measures Any of the following diagnoses?: none - VTE Discharge Requirements Deep Vein Thrombosis/Pulmonary Embolism Present on Admission: No Has pt received <5 days of overlap therapy or INR<2.0: No Anticoagulant overlap therapy prescribed at discharge: No Contraindication No Overlap Therapy order at DC: Not Indicated Exam - Physical Exam Narrative exam: GEN: WDWN, NAD, Awake, Alert, Orientated x3 HEENT: NCAT, EOMI, PERRL, OP Clear NECK: supple, no adenopathy, no thyromegaly, no JVD CVS/HEART: RRR, normal S1S2, pulses present bilaterally CHEST/LUNGS: CTA B, Symmetrical chest expansion, good air entry bilaterally GI/Abdomen: soft, NTND, good bowel sounds, no guarding or rebound /Bladder: no suprapubic tenderness, no CVA or paraspinal tenderness EXT/Skin: no c/c/e, no obvious rash MSK: FROM x 4 Neuro: CN 2-12 grossly intact, no new focal deficits Psych: calm - Constitutional Vitals: Temp Pulse Resp BP Pulse Ox 98.2 F 84 18 108/60 100 11/27/17 12:16 11/27/17 12:16 11/27/17 12:16 11/27/17 12:16 11/27/17 12:16 Plan Activity: other (no strenous activity until cleared by PCP) Diet: regular Follow up with: PRIMARY CAREMD [Primary Care Provider] - 3-5 Days TYLER MATAMOROS MD [Staff Physician] - 7 Days Forms: Work/School Release Form Prescriptions: Acetaminophen [Acetaminophen TAB] 650 mg PO Q4H PRN #30 tablet PRN Reason: Non Cardiac Pain Or Temp>100.5 Ciprofloxacin HCl [Ciprofloxacin TAB] 500 mg PO BID #14 tablet oxyCODONE /ACETAMINOPHEN [Percocet 5/325 mg] 1 tab PO Q4H PRN #18 tablet PRN Reason: Pain , Severe (7-10)
[2017-11-27 18:31] VITALS: BP 107/66
[2017-11-30 23:03] LABS: ANA Screen, IFA Negative (Negative)
[2017-12-01 21:19] LABS: Myeloperoxidase Antibody <1.0 AI (<1.0)
== END 2017-11-27 18:20 | disposition home or self-care (01) | DRG 872 ==
LOC: ED 17:26 → 3A 11-24 00:06
PROVIDERS: ADMIT Internal Medicine; ATTEND Internal Medicine
PROC: 009U3ZX Drainage of Spinal Canal, Percutaneous Approach, Diagnostic (ICD-10-PCS; principal; 2017-11-23)
DX: A41.9 Sepsis, unspecified organism (principal); M43.6 Torticollis; R51 Headache; N30.00 Acute cystitis without hematuria; F17.210 Nicotine dependence, cigarettes, uncomplicated; Q85.00 Neurofibromatosis, unspecified; B96.20 Unspecified Escherichia coli [E. coli] as the cause of diseases classified elsewhere; E87.6 Hypokalemia; Z79.899 Other long term (current) drug therapy
CPT/HCPCS: 36415; 70450; 70551; 71045; 76700; 80048; 80053; 81001; 81025; 82140; 82805; 82947; 83873; 83916; 84160; 85025; 85610; 85730; 86021; 86038; 86140; 86160; 86403; 86592; 87040; 87076; 87086; 87116; 87186; 87400; 89051; 93005; 93010; 96365; 96366; 96375; 96376; 99291; J0696; J1644; J2270; J2405; J2543; J3010; J7030; J7040